=== PATIENT | male | born 1970 | race Caucasian/White ===

== ENCOUNTER 2017-12-28 09:20 | Emergency (ER) | payer BC ==
--- OUTSIDE RECORDS SUMMARY | 2017-12-28 09:22 | XMS REPORT | Clinical Summary ---
:1970 Author Organization [facility] Address [address] [place] [address] Care Team Providers Name Role Phone Asked, No Pcp Primary Care Provider Unavailable Allergies No Known Allergies Current Medications Prescription Sig. Disp. Refills Start Date End Date Status traZODone (DESYREL) TAKE ONE (1) 30 tablet 2 10/03/2017 Active 100 MG tablet TABLET(S) BY 9 MOUTH AT BEDTIME. ALPRAZolam (XANAX) TAKE ONE (1) 5 tablet 0 11/05/2017 Active 1 MG tablet TABLET(S) BY 9 MOUTH NEEDED FOR ANXIETY. ibuprofen Take 200 mg by Active (ADVIL,MOTRIN) 200 mouth every 6 MG tablet (six) hours as needed for mild pain. gabapentin Take 300 mg by Active (NEURONTIN) 300 mg mouth 3 capsule (three) times a day. PROAIR HFA 90 INHALE TWO (2) 0 12/02/2017 Active mcg/actuation PUFFS FOUR inhaler TIMES A DAY NEEDED. CIALIS 10 mg tablet TAKE ONE (1) 2 10/27/2017 Active TABLET(S) BY MOUTH ONCE A DAY NEEDED. ANORO ELLIPTA INHALE ONE (1) 1 10/22/2017 Active 62.5-25 PUFF(S) TWICE mcg/actuation A DAY. blister with device acetaminophen-codei Take 1-2 20 tablet 0 09/22/2017 ne (TYLENOL WITH tablets by 8 CODEINE #3) 300-30 mouth every 4 mg per tablet (four) hours as needed for moderate pain for up to 5 days. clonAZEPAM TAKE ONE (1) 0 09/09/2017 Discontinued (KlonoPIN) 0.5 MG TABLET(S) BY 8 tablet MOUTH AT BEDTIME NEEDED. traZODone (DESYREL) TAKE ONE (1) 2 07/30/2017 Discontinued 100 MG tablet TABLET(S) BY 8 MOUTH AT BEDTIME. clonAZEPAM TAKE ONE (1) 30 tablet 2 10/03/2017 Discontinued (KlonoPIN) 0.5 MG TABLET(S) BY 8 tablet MOUTH AT BEDTIME NEEDED. ALPRAZolam (XANAX) Take 1 tab PO 15 tablet 0 10/06/2017 Discontinued 1 MG tablet prn anxiety 8 traMADol (ULTRAM) Take 1 tablet 30 tablet 1 10/06/2017 Discontinued 50 mg tablet (50 mg total) 8 by mouth every 6 (six) hours as needed for moderate pain for up to 30 days. traMADol (ULTRAM) Take 1 tablet 30 tablet 1 11/04/2017 50 mg tablet (50 mg total) 8 by mouth every 6 (six) hours as needed for moderate pain for up to 30 days. acetaminophen Take 2 tablets 40 tablet 0 11/10/2017 (TYLENOL) 325 MG (650 mg total) 8 tablet by mouth every 6 (six) hours for 5 days. gabapentin Take 1 capsule 21 capsule 0 11/10/2017 (NEURONTIN) 300 mg (300 mg total) 8 capsule by mouth 3 (three) times a day for 7 days. sennosides-docusate Take 1 tablet 60 tablet 0 11/10/2017 sodium (SENOKOT-S) by mouth 2 8 8.6-50 mg per (two) times a tablet day for 30 days. ibuprofen Take 1 tablet 12 tablet 0 11/10/2017 (ADVIL,MOTRIN) 600 (600 mg total) 8 MG tablet by mouth every 6 (six) hours for 3 days. acetaminophen Take 500 mg by Discontinued (TYLENOL) 500 MG mouth every 6 8 tablet (six) hours as needed for mild pain. acetaminophen-codei Take 1-2 30 tablet 0 12/17/2017 ne (TYLENOL WITH tablets by 8 CODEINE #3) 300-30 mouth every 4 mg per tablet (four) hours as needed for moderate pain for up to 5 days. cephalexin (KEFLEX) Take 1 capsule 20 capsule 0 12/17/2017 500 MG capsule (500 mg total) 8 by mouth every 6 (six) hours for 5 days. Active Problems Problem Noted Date Malignant neoplasm of upper lobe of right lung 12/04/2017 Lung nodule 11/07/2017 Encounters Date Type Specialty Care Team Description 12/24/2017 Telephone Cardiothoracic Shawn, Surgery Aarti Cooper, DALE 12/17/2017 Hospital Encounter General Surgery Tonya Lin Neoplasm of MD Reji uncertain behavior of skin 12/17/2017 Procedure Pass General Surgery 12/17/2017 Surgery General Surgery Tonya Lin EXCISION SQUAMOS MD Reji CELL CARCINOMA LEFT LOWER LIP, WITH FROZEN SECTION, COMPLEX CLOSURE 12/16/2017 Anesthesia Event General Surgery Arsalan He MD 12/11/2017 Office Visit Cardiothoracic Luc Pizano Surgery follow-up Surgery MD Norma examination (Primary Dx) 12/11/2017 Oncology Cardiothoracic Pham, Survivorship Surgery Meli, TOYA 12/09/2017 Telephone Oncology Demario Kyle MD 12/03/2017 Telephone Cardiothoracic Alicia, Surgery Carissa, HECTOR 11/25/2017 Telephone Cardiothoracic Alicia, Surgery Carissa, HECTOR 11/18/2017 Refill Oncology Demario Kyle MD 11/13/2017 Telephone Cardiothoracic Shawn, Surgery Aarti Cooper NP 11/11/2017 Telephone Cardiothoracic Shawn Surgery Aarti Cooper, DALE 11/07/2017 Hospital Encounter Cardiology Luc Pizano Lung nodule - MD Norma 11/10/2017 11/07/2017 Anesthesia Event Cardiothoracic Claribel, Surgery MAVERICK Maher 11/07/2017 Procedure Pass Cardiothoracic Surgery 11/07/2017 Surgery Cardiothoracic Luc Pizano ROBOTIC ASSISTED Surgery MD oNrma THORACOSCOPIC RIGHT UPPER LOBE WEDGE RESECTION, POSSIBLE LOBECTOMY, MEDIASTINAL LYMPH NODE DISSECTION 11/06/2017 Telephone Cardiothoracic Shawn, Surgery Aarti Cooper, OIL TRUCK DRIVER 11/04/2017 Telephone Oncology Demario Kyle MD 10/27/2017 Lab Lab Luc Pizano MD 10/27/2017 Orders Only Cardiothoracic Luc Pizano Surgery MD Norma 10/27/2017 Transcribe Orders Procedural Cardiology Harinder Garethdevorah Lung nodule ; MD Suhas Pre-op testing 10/22/2017 Telephone Cardiothoracic Alicia, Surgery Carissa, [place] 10/20/2017 Refill Oncology Demario Kyle MD 10/16/2017 Office Visit Cardiothoracic Luc Pizano Lung nodule (Primary Dx ); Surgery MD Norma Pre-op testing 10/16/2017 Hospital Encounter Pulmonology Luc Pizano MD 10/16/2017 Orders Only Cardiothoracic Provider, Surgery MD Tejal 10/16/2017 Oncology Oncology Deborah Nath, TOYA 10/08/2017 Telephone Cardiothoracic Alicia, Surgery Carissa, [place] 10/08/2017 Telephone Cardiothoracic Ambrosio, Surgery Yesenia, [place] 10/08/2017 Telephone Cardiothoracic Ambrosio Surgery [place], [place] 10/08/2017 Orders Only Oncology Misa Melendez RN 10/08/2017 Telephone Oncology Demario Kyle MD 10/08/2017 Orders Only Cardiothoracic Alicia, Malignant neoplasm Surgery Carissa, [place] of lung, unspecified laterality, unspecified part of lung (Primary Dx) 10/06/2017 Hospital Encounter Radiology Saroj, Malignant neoplasm Demario Osuna of lung, unspecified laterality, unspecified part of lung 10/06/2017 Orders Only Oncology Misa Melendez RN 10/06/2017 Telephone Oncology Demario Kyle MD 10/03/2017 Orders Only Oncology Misa Melendez RN 10/03/2017 Orders Only Oncology Racquel Acevedo MA 10/02/2017 Telephone Oncology Demario Kyle MD 09/30/2017 Consult Oncology Saroj Malignant neoplasm Demario Osuna of lung, unspecified laterality, unspecified part of lung (Primary Dx) 09/30/2017 Telephone Oncology Demario Kyle MD 09/23/2017 Telephone Oncology Demario Kyle MD 09/22/2017 Emergency Emergency Medicine Dupont, Lung mass (Primary Dx); Kalie Rosario DO Chest pain, unspecified type Marko Galo MD after 12/27/2016 Family History Medical History Relation Name Comments Arrhythmia Brother Stroke Maternal Grandfather Heart disease Mother Relation Name Status Comments Brother Father Maternal Grandfather Mother Alive Social History Tobacco Use Types Packs/Day Years Used Date Current Every Day Smoker Cigarettes 0.5 35 1982 - 10/17/2017 Smokeless Tobacco: Never Used Tobacco Cessation: Counseling Given: Yes Alcohol Use Drinks/Week oz/Week Comments No Sex Assigned at Date Recorded Not on file Last Filed Vital Signs Vital Sign Reading Time Taken Blood Pressure 116/62 12/17/2017 1:02 PM CDT Pulse 94 12/17/2017 1:02 PM CDT Temperature 37.1 C (98.8 F) 12/17/2017 12:43 PM CDT Respiratory Rate 18 12/17/2017 1:02 PM CDT Oxygen Saturation 97% 12/17/2017 1:02 PM CDT Inhaled Oxygen Concentration - - Weight 57.9 kg (127 lb 9.6 oz) 12/17/2017 6:18 AM CDT Height 175.3 cm (5' 9") 12/17/2017 6:18 AM CDT Body Mass Index 18.84 12/17/2017 6:18 AM CDT Plan of Treatment Health Maintenance Due Date Last Done Comments INFLUENZA VACCINE 01/07/2018 Procedures Procedure Name Priority Date/Time Associated Comments Diagnosis SURGICAL PATHOLOGY Routine 12/17/2017 10:33 Results for this REQUEST AM CDT procedure are in the results section. KS AN ELECTIVE Routine 12/17/2017 10:29 ENDOTRACHEAL AIRWAY AM CDT Procedure Note - Tonya Mendez CRNA - 12/17/2017 10:29 AM CDT Airway Date/Time: 12/17/2017 10:03 AM Performed by: TONYA MENDEZ Authorized by: ARSALAN HE Location: OR Urgency: Elective Difficult Airway: No Resident/WAITER/WAITRESS FORMAL/AA: TONYA MENDEZ Performed by: resident/WAITER/WAITRESS FORMAL/AA Preoxygenated with 100% O2: Yes C-spine Precautions Maintained Throughout: Yes Mask Ventilation: Easy mask Final Airway Type: Endotracheal airway Final Endotracheal Airway: ETT Technique Used: Direct laryngoscopy Devices/Methods Used in Placement: Intubating stylet Insertion Site: Oral Blade Type: Keren Laryngoscope Blade/Videolaryngoscope Blade Size: 3 ETT Size (mm): 7.0 Measured from: Lips ETT to Lips (cm): 22 Placement Verified by: CO2 detection, direct visualization and equal breath sounds Laryngoscopic view: Grade IIb - view of arytenoids or posterior of glottis only Rapid Sequence Induction (RSI): No Modified RSI: No Number of Attempts at Approach: 1 HC COMPLETE BLD COUNT W/AUTO STAT 12/17/2017 6:33 AM CDT Results for this DIFF procedure are in the results section. XR CHEST 1 VW PORTABLE Routine 11/10/2017 6:50 AM CDT XR CHEST 1 VW PORTABLE Routine 11/09/2017 6:36 AM CDT XR CHEST 1 VW PORTABLE STAT 11/08/2017 8:13 PM CDT XR CHEST 1 VW PORTABLE Routine 11/08/2017 2:29 PM CDT XR CHEST 1 VW PORTABLE STAT 11/08/2017 2:42 AM CDT ESTIMATED GFR STAT 11/08/2017 12:39 AM CDT PHOSPHORUS LEVEL STAT 11/08/2017 12:39 AM CDT MAGNESIUM LEVEL STAT 11/08/2017 12:39 AM CDT HC COMPLETE BLD COUNT W/AUTO STAT 11/08/2017 12:39 AM CDT Results for this DIFF procedure are in the results section. BASIC METABOLIC PANEL STAT 11/08/2017 12:39 AM CDT TROPONIN STAT 11/08/2017 12:39 AM CDT ARTERIAL BLOOD GAS STAT 11/08/2017 12:38 AM CDT POC GLUCOSE Routine 11/08/2017 12:33 AM CDT ECG 12-LEAD STAT 11/08/2017 12:30 AM CDT XR CHEST 1 VW PORTABLE STAT 11/07/2017 3:45 PM CDT GLUCOSE LEVEL, SYRINGE STAT 11/07/2017 12:16 PM CDT HEMOGLOBIN, SYRINGE STAT 11/07/2017 12:16 PM CDT IONIZED CALCIUM, ARTERIAL STAT 11/07/2017 12:16 PM CDT SODIUM LEVEL, SYRINGE STAT 11/07/2017 12:16 PM CDT POTASSIUM, SYRINGE STAT 11/07/2017 12:16 PM CDT ARTERIAL BLOOD GAS STAT 11/07/2017 12:16 PM CDT SURGICAL PATHOLOGY REQUEST Routine 11/07/2017 10:53 AM CDT SURGICAL PATHOLOGY REQUEST Routine 11/07/2017 10:53 AM CDT SURGICAL PATHOLOGY REQUEST Routine 11/07/2017 10:53 AM CDT SURGICAL PATHOLOGY REQUEST Routine 11/07/2017 10:53 AM CDT MISCELLANEOUS REFERRAL TEST Routine 11/07/2017 10:53 AM CDT ARTERIAL BLOOD GAS, STAT 11/07/2017 10:27 AM CDT Results for this CORRECTED procedure are in the results section. HEMOGLOBIN, SYRINGE STAT 11/07/2017 10:27 AM CDT SODIUM LEVEL, SYRINGE STAT 11/07/2017 10:27 AM CDT POTASSIUM, SYRINGE STAT 11/07/2017 10:27 AM CDT IONIZED CALCIUM, ARTERIAL STAT 11/07/2017 10:27 AM CDT GLUCOSE LEVEL, SYRINGE STAT 11/07/2017 10:27 AM CDT ARTERIAL LINE Routine 11/07/2017 8:27 AM CDT Procedure Note - Marjorie Sanford CRNA - 11/07/2017 8:27 AM CDT Arterial line Performed by: MARJORIE SANFORD Authorized by: LILLI GRAJEDA JR. Patient Location: OR Start Time: 11/07/2017 7:55 AM End Time: 11/07/2017 7:58 AM Staff: Anesthesiologist: LILLI GRAJEDA JR. Resident/WAITER/WAITRESS FORMAL/AA: MARJORIE SANFORD Performed by: Resident/WAITER/WAITRESS FORMAL/AA Pre-procedure: patient identified, IV checked, site and side verified, risks and benefits discussed, procedure verified, surgical consent complete, patient position confirmed, monitors and equipment checked and pre-op evaluation complete MSBT: antiseptic used, all elements of maximal sterile barrier technique followed, hand hygiene performed, cap/gown used by other personnel and solutions labeled TIme Out Performed: 11/07/2017 7:55 AM Indications: Indications: multiple ABGs, respiratory failure and hemodynamic monitoring Anesthesia: Anesthesia: General Procedure Details: Arterial Line placement: Placed post induction Line placement site: Radial Line placement side: Right Arterial line gauge: 20 G Number of attempts: 1 Ultrasound guidance used: No Post-procedure: Post-procedure: Sterile dressing applied Post procedure circulation, sensation, movement: Normal Patient tolerance: Patient tolerated the procedure well with no immediate complications KS AN ELECTIVE ENDOTRACHEAL AIRWAY Routine 11/07/2017 8:25 AM CDT Procedure Note - Marjorie Sanford CRNA - 11/07/2017 8:25 AM CDT Airway Date/Time: 11/07/2017 7:47 AM Performed by: MARJORIE SANFORD Authorized by: LILLI GRAJEDA JR. Location: OR Urgency: Elective Difficult Airway: No Preoxygenated with 100% O2: Yes C-spine Precautions Maintained Throughout: Yes Mask Ventilation: Easy mask Final Airway Type: Endotracheal airway Final Endotracheal Airway: ETT - double lumen left Cuffed: Yes Technique Used: Direct laryngoscopy Devices/Methods Used in Placement: Intubating stylet Insertion Site: Oral Blade Type: Quinones Laryngoscope Blade/Videolaryngoscope Blade Size: 2 ETT Double Lumen (fr): 39 Cuff at minimum occlusion pressure: Yes Measured from: Lips ETT to Lips (cm): 29 Placement Verified by: CO2 detection, direct visualization and equal breath sounds Laryngoscopic view: Grade I - full view of glottis Rapid Sequence Induction (RSI): No Modified RSI: No Number of Attempts at Approach: 1 Atraumatic intubation, teeth and lips intact, ETT secured via tape and connected to the OR vent. Patient tolerated intubation well. Area of left lower lip lesion avoided. ARTERIAL BLOOD GAS, STAT 11/07/2017 8:16 Results for this CORRECTED AM CDT procedure are in the results section. SODIUM LEVEL, SYRINGE STAT 11/07/2017 8:16 Results for this AM CDT procedure are in the results section. POTASSIUM, SYRINGE STAT 11/07/2017 8:16 Results for this AM CDT procedure are in the results section. HEMOGLOBIN, SYRINGE STAT 11/07/2017 8:16 Results for this AM CDT procedure are in the results section. GLUCOSE LEVEL, SYRINGE STAT 11/07/2017 8:16 Results for this AM CDT procedure are in the results section. IONIZED CALCIUM, STAT 11/07/2017 8:16 Results for this ARTERIAL AM CDT procedure are in the results section. ECG 12-LEAD Routine 10/27/2017 1:41 Lung nodule Results for this PM CDT Pre-op testing procedure are in the results section. PREPARE RBC Routine 10/27/2017 1:40 Results for this PM CDT procedure are in the results section. TYPE AND SCREEN Routine 10/27/2017 1:40 Results for this PM CDT procedure are in the results section. CBC WITH PLATELET AND Routine 10/27/2017 1:30 Results for this DIFFERENTIAL PM CDT procedure are in the results section. PROTHROMBIN TIME WITH Routine 10/27/2017 1:30 Results for this INR PM CDT procedure are in the results section. PARTIAL THROMBOPLASTIN Routine 10/27/2017 1:30 Results for this TIME (PTT) PM CDT procedure are in the results section. COMPREHENSIVE METABOLIC Routine 10/27/2017 1:30 Results for this PANEL PM CDT procedure are in the results section. SPIROMETRY, DIFFUSION Routine 10/16/2017 10:03 Malignant neoplasm AM CDT of lung, unspecified laterality, unspecified part of lung PULMONARY FUNCTION TEST Routine 10/16/2017 12:[address] SKULL BASE TO Routine 10/06/2017 10:09 Malignant neoplasm Results for this MID THIGH AM CDT of lung, procedure are in unspecified the results laterality, section. unspecified part of lung POC GLUCOSE Routine 10/06/2017 8:45 Results for this AM CDT procedure are in the results section. ED REFERRAL TO [facility] Routine 09/22/2017 8:44 PENTECOSTALISM PHYSICIAN PM CDT ORGANIZATION CT CHEST W CONTRAST STAT 09/22/2017 4:10 Results for this PM CDT procedure are in the results section. XR CHEST 2 VW STAT 09/22/2017 2:54 Results for this PM CDT procedure are in the results section. ECG ED PRELIMINARY Routine 09/22/2017 2:50 Results for this INTERPRETATION PM CDT procedure are in the results section. ESTIMATED GFR STAT 09/22/2017 2:19 Results for this PM CDT procedure are in the results section. B NATRIURETIC PEPTIDE STAT 09/22/2017 2:19 Results for this PM CDT procedure are in the results section. TROPONIN STAT 09/22/2017 2:19 Results for this PM CDT procedure are in the results section. COMPREHENSIVE METABOLIC STAT 09/22/2017 2:19 Results for this PANEL PM CDT procedure are in the results section. HC COMPLETE BLD COUNT STAT 09/22/2017 2:19 Results for this W/AUTO DIFF PM CDT procedure are in the results section. ECG 12-LEAD STAT 09/22/2017 1:48 Results for this PM CDT procedure are in the results section. after 12/27/2016 Results Surgical pathology request (12/17/2017 10:33 AM)Only the most recent of5 resultswithin the time period is included. [facility] DEPARTMENT OF PATHOLOGY AND GENOMIC MEDICINE Surgical pathology report See link below for PDF [facility] DEPARTMENT OF Lab Report PATHOLOGY AND GENOMIC MEDICINE Result status This is Final Report to [facility] DEPARTMENT OF [id number] PATHOLOGY AND GENOMIC MEDICINE Performing Organization Address City/State/Zipcode Phone Number [facility] DEPARTMENT OF PATHOLOGY AND [address] [place] [address]. [place] [address] GENOMIC MEDICINE CBC with platelet and differential (12/17/2017 6:33 AM)Only the most recent of4 resultswithin the time period is included. WBC 7.8 4.2 - 11.0 k/uL [facility] DEPARTMENT OF PATHOLOGY AND GENOMIC MEDICINE RBC 4.77 4.04 - 5.86 m/uL [facility] DEPARTMENT OF PATHOLOGY AND GENOMIC MEDICINE HGB 13.9 13.0 - 17.3 g/dL [facility] DEPARTMENT OF PATHOLOGY AND GENOMIC MEDICINE HCT 44.2 34.0 - 45.0 % [facility] DEPARTMENT OF PATHOLOGY AND GENOMIC MEDICINE MCV 92.7 80.0 - 98.0 fL [facility] DEPARTMENT OF PATHOLOGY AND GENOMIC MEDICINE MCH 29.1 27.0 - 34.0 pg [facility] DEPARTMENT OF PATHOLOGY AND GENOMIC MEDICINE MCHC 31.4 (L) 31.5 - 36.5 g/dL [facility] DEPARTMENT OF PATHOLOGY AND GENOMIC MEDICINE RDW - SD 51.2 (H) 37.0 - 51.0 fL [facility] DEPARTMENT OF PATHOLOGY AND GENOMIC MEDICINE MPV 9.5 7.4 - 10.4 fL [facility] DEPARTMENT OF PATHOLOGY AND GENOMIC MEDICINE Platelet count 294 150 - 400 k/uL [facility] DEPARTMENT OF PATHOLOGY AND GENOMIC MEDICINE Nucleated RBC 0.00 /100 WBC [facility] DEPARTMENT OF PATHOLOGY AND GENOMIC MEDICINE Neutrophils 44.1 36.0 - 66.0 % [facility] DEPARTMENT OF PATHOLOGY AND GENOMIC MEDICINE Lymphocytes 34.8 24.0 - 44.0 % [facility] DEPARTMENT OF PATHOLOGY AND GENOMIC MEDICINE Monocytes 8.9 (H) 0.0 - 6.0 % [facility] DEPARTMENT OF PATHOLOGY AND GENOMIC MEDICINE Eosinophils 10.5 (H) 0.0 - 6.0 % [facility] DEPARTMENT OF PATHOLOGY AND GENOMIC MEDICINE Basophils 1.3 (H) 0.0 - 1.2 % [facility] DEPARTMENT OF PATHOLOGY AND GENOMIC MEDICINE Immature granulocytes 0.4 0.0 - 1.0 % [facility] DEPARTMENT OF PATHOLOGY AND GENOMIC MEDICINE Specimen Blood Performing Organization Address City/State/[facility] Phone Number [facility] DEPARTMENT OF PATHOLOGY AND [address] [place] [address] [facility] MEDICINE XR Chest 1 Vw Portable (11/10/2017 6:50 AM)Only the most recent of6 resultswithin the time period is included. Narrative Performed At EXAMINATION:XR CHEST 1 VW PORTABLE [facility] CLINICAL HISTORY:Post-op surgery COMPARISON:Yesterday IMPRESSION: Soft tissue gas in the right supraclavicular and subclavian region partially visualized, grossly stable. No pneumothorax identified. Stable moderate right hemidiaphragmatic elevation. Better aeration in the left lung base, otherwise stable [facility]-[id number] Procedure Note Hm Interface, Radiology Results Incoming - 11/10/2017 7:31 AM CDT EXAMINATION: XR CHEST 1 VW PORTABLE CLINICAL HISTORY: Post-op surgery COMPARISON: Yesterday IMPRESSION: Soft tissue gas in the right supraclavicular and subclavian region partially visualized, grossly stable. No pneumothorax identified. Stable moderate right hemidiaphragmatic elevation. Better aeration in the left lung base, otherwise stable [facility]-[id number] Performing Organization Address City/[facility]/Zipcode Phone Number [facility] [address] [place] [phone] Estimated GFR (11/08/2017 12:39 AM)Only the most recent of2 resultswithin the time period is included. GFR Non Af Amer >90 mL/min/1.73 m2 [facility] DEPARTMENT OF PATHOLOGY AND GENOMIC MEDICINE GFR Af Amer >90 mL/min/1.73 m2 [facility] DEPARTMENT OF Comment: PATHOLOGY AND GENOMIC Chronic kidney disease: <60 mL/min/1.73m2 MEDICINE Kidney failure: <15 mL/min/1.73m2 The estimated GFR is calculated from the IDMS-traceable Modification of Diet in Renal Disease Equation. The accuracy of the calculation is poor when the creatinine is normal. Calculated values >90 mL/min/1.73m2 are not reported. This equation has not been validated in children (<18 years), women, the elderly (>70 years), or ethnic groups other than Caucasians and Americans. Specimen Plasma specimen Performing Organization Address [facility] Hospitalcowv Phone Number [facility] DEPARTMENT OF PATHOLOGY AND [address] [place], [place] [phone] [facility] Troponin (11/08/2017 12:39 AM)Only the most recent of2 resultswithin the time period is included. Troponin <0.30 0.00 - 0.30 ng/mL [facility] DEPARTMENT OF PATHOLOGY Comment: AND GENOMIC MEDICINE 0.30 - 1.49 ng/mlMay indicate increased risk of acute coronary syndrome. >=1.5 ng/mlConsistent with acute myocardial infarction. The diagnostic value of a single normal or non-diagnostic result is questionable.Serial samples at 2-6 hour intervals are required to rule out acute myocardial injury. Specimen Plasma specimen Performing Organization Address City/State/Zipcode Phone Number [facility] DEPARTMENT OF PATHOLOGY AND [address] [place] [phone] [facility] Phosphorus level (11/08/2017 12:39 AM) Phosphorus 3.3 2.4 - 4.5 mg/dL [facility] DEPARTMENT OF PATHOLOGY AND GENOMIC MEDICINE Specimen Plasma specimen Performing Organization Address [facility] Hospitalcode Phone Number [facility] DEPARTMENT OF PATHOLOGY AND [address] [place] [phone] [facility] Magnesium level (11/08/2017 12:39 AM) Magnesium 1.8 1.6 - 2.6 mg/dL [facility] DEPARTMENT OF PATHOLOGY AND GENOMIC MEDICINE Specimen Plasma specimen Performing Organization Address City/[facility]/Zipcode Phone Number [facility] DEPARTMENT OF PATHOLOGY AND [address] [place] [address] Basic metabolic panel (11/08/2017 12:39 AM) Sodium 135 135 - 148 mEq/L [facility] DEPARTMENT OF PATHOLOGY AND GENOMIC MEDICINE Potassium 4.8 3.5 - 5.0 mEq/L [facility] DEPARTMENT OF PATHOLOGY AND GENOMIC MEDICINE Chloride 101 98 - 112 mEq/L [facility] DEPARTMENT OF PATHOLOGY AND GENOMIC MEDICINE CO2 24 24 - 31 mEq/L [facility] DEPARTMENT OF PATHOLOGY AND GENOMIC MEDICINE Anion gap 10@ANIO 7 - 15 mEq/L [facility] DEPARTMENT OF PATHOLOGY AND GENOMIC MEDICINE BUN 8 6 - 20 mg/dL [facility] DEPARTMENT OF PATHOLOGY AND GENOMIC MEDICINE Creatinine 0.9 0.7 - 1.2 mg/dL [facility] DEPARTMENT OF PATHOLOGY AND GENOMIC MEDICINE Glucose 164 (H) 65 - 99 mg/dL [facility] DEPARTMENT OF PATHOLOGY AND GENOMIC MEDICINE Calcium 8.3 8.3 - 10.2 mg/dL [facility] [facility] DEPART[facility]OLOGY AND GENOMIC MEDICINE Specimen Plasma specimen Performing Organization Address City/[facility] Phone Number [facility] DEPARTMENT OF PATHOLOGY AND [address] [place] [address] Arterial blood gas (11/08/2017 12:38 AM)Only the most recent of2 resultswithin the time period is included. pH, arterial 7.40 7.35 - 7.45 [facility] DEPARTMENT OF PATHOLOGY AND GENOMIC MEDICINE pCO2, arterial 43 35 - 45 mmHg [facility] DEPARTMENT OF PATHOLOGY AND GENOMIC MEDICINE pO2, arterial 111 (H) 80 - 90 mmHg [facility] DEPARTMENT OF PATHOLOGY AND GENOMIC MEDICINE Bicarbonate, arterial 25.8 21.0 - 28.0 mmol/L [facility] DEPARTMENT OF PATHOLOGY AND GENOMIC MEDICINE Base excess, arterial 1 -2 - 2 mEq/L [facility] DEPARTMENT OF PATHOLOGY AND GENOMIC MEDICINE O2 saturation, arterial 98 95 - 100 % [facility] DEPARTMENT OF PATHOLOGY AND GENOMIC MEDICINE Specimen Blood Performing Organization Address City/[facility]/Zipcode Phone Number [facility] DEPARTMENT OF PATHOLOGY AND [address] [place] [address] POC glucose (11/08/2017 12:33 AM)Only the most recent of2 resultswithin the time period is included. POC glucose 142 (H) 65 - 99 mg/dL [facility] DEPARTMENT OF PATHOLOGY AND Comment: GENOMIC MEDICINE [facility] Notified RN Meter ID: [id number] Song And Dance Performer: Armani Soto Performing Organization Address [facility] Phone Number [facility] DEPARTMENT OF PATHOLOGY AND [address] [place] [address] MEDICINE ECG 12 lead (11/08/2017 12:30 AM)Only the most recent of3 resultswithin the time period is included. Ventricular rate 79 [facility] Atrial rate 79 [facility] KS interval 146 [facility] QRSD interval 90 [facility] QT interval 340 [facility] QTC interval 389 [facility] P axis 1 65 [facility] QRS axis 1 90 [facility] T wave axis 50 [facility] EKG impression Normal sinus rhythm-Possible Left atrial [facility] MUSE enlargement-Rightward axis-Borderline ECG-In automated comparison with ECG of 27-OCT-2017 13:41,-No significant change was found- Performing Organization Address [facility] Phone Number [facility] MUSE [address] [place] [address] Sodium level, syringe (11/07/2017 12:16 PM)Only the most recent of3 resultswithin the time period is included. Sodium, syringe 134 (L) 135 - 148 mEq/L [facility] DEPARTMENT OF PATHOLOGY AND GENOMIC MEDICINE Specimen Blood Performing Organization Address [facility] Phone Number [facility] DEPARTMENT OF PATHOLOGY AND [address] [place] [address] Potassium, syringe (11/07/2017 12:16 PM)Only the most recent of3 resultswithin the time period is included. Potassium, syringe 4.8 3.5 - 5.0 mEq/L [facility] DEPARTMENT OF PATHOLOGY AND GENOMIC MEDICINE Specimen Blood Performing Organization Address [facility] Phone Number [facility] DEPARTMENT OF PATHOLOGY AND [address] [place] [address] Ionized calcium, arterial (11/07/2017 12:16 PM)Only the most recent of3 resultswithin the time period is included. Ionized calcium, arterial 1.09 (L) 1.11 - 1.32 mmol/L [facility] DEPARTMENT OF PATHOLOGY AND GENOMIC MEDICINE Specimen Blood Performing Organization Address City/[facility] Phone Number [facility] DEPARTMENT OF PATHOLOGY AND [address] [place] [address] Hemoglobin, syringe (11/07/2017 12:16 PM)Only the most recent of3 resultswithin the time period is included. Hemoglobin, syringe 13.1 (L) 14.0 - 18.0 g/dL [facility] DEPARTMENT OF PATHOLOGY AND GENOMIC MEDICINE Specimen Blood Performing Organization Address City/[facility] Phone Number [facility] DEPARTMENT OF PATHOLOGY AND [address] [place] [address] Glucose level, syringe (11/07/2017 12:16 PM)Only the most recent of3 resultswithin the time period is included. Glucose, syringe 122 (H) 65 - 99 mg/dL [facility] DEPARTMENT OF PATHOLOGY AND GENOMIC MEDICINE Specimen Blood Performing Organization Address [facility] Hospitalcowv Phone Number [facility] DEPARTMENT OF PATHOLOGY AND [address] [place] [address] Miscellaneous referral test (11/07/2017 10:53 AM) [facility] test name NEOGENOMIC [facility] test result see note [facility] Comment: MET FISH Sample type: Paraffin, lung Case# [id number] RESULTS: NEGATIVE Interpretation: MET(7q31) signals per nucleus: 2.6 CEN7 signals per nucleus: 2.5 MET-CEN7 signal ratio: 1.0 An H&E stained slide was reviewed by a pathologist to identify traget areas containing invasive tumor. FISH analysis was performed within the marked target areas using a dual-probe FISH assay to detect MET overexpression. Results show no evidence of MET amplification with a MET/CEN7 ratio of <2.0. This is a NEGATIVE result. This MET FISH assay was scored manually by a certified coordinator of genetic services. Two or more independent areas containing invasive tumor were analyzed and the technical results underwent further review for quality worker purposes. Reference range: Positive: MET(7q31) to CEN7 signal ration is >/=2.0 or when 10% of tumor cells contain clusters of >15 copies per cell of MET (7q31) signals. Negative: MET(7q31) to CEN7 signal ratio is <2.0 Equivocal: MET copy number >/=5.0 and MET/CEN7 ratio <2.0 Probe set details: MET: nuc christiano(CEN7x2.5,METx2.6)[50] Nuclei scored: 50 Test(s) performed by: [employer] 5 ADEOLA Rose Narrative Performed At [employer] MET [facility] [id number] Performing Organization Address City/[facility]/Zipcode Phone Number [facility] [address] [place] [address] Arterial blood gas, corrected (11/07/2017 10:27 AM)Only the most recent of2 resultswithin the time period is included. pH, arterial 7.24 (L) 7.35 - 7.45 [facility] DEPARTMENT OF PATHOLOGY AND GENOMIC MEDICINE pCO2, arterial 64 (HH) 35 - 45 mmHg [facility] DEPARTMENT OF PATHOLOGY AND GENOMIC MEDICINE pO2, arterial 187 (H) 80 - 90 mmHg [facility] DEPARTMENT OF PATHOLOGY AND GENOMIC MEDICINE Temperature, Celsius 36.4 Degrees C [facility] DEPARTMENT OF PATHOLOGY AND GENOMIC MEDICINE O2 saturation, arterial 99 95 - 100 % [facility] DEPARTMENT OF PATHOLOGY AND GENOMIC MEDICINE pH, arterial corrected 7.25 [facility] DEPARTMENT OF PATHOLOGY AND GENOMIC MEDICINE pCO2, arterial corrected 62 mmHg [facility] DEPARTMENT OF PATHOLOGY AND GENOMIC MEDICINE pO2, arterial corrected 184 mmHg [facility] DEPARTMENT OF PATHOLOGY AND GENOMIC MEDICINE Base excess, arterial -2 -2 - 2 mEq/L [facility] DEPARTMENT OF PATHOLOGY AND GENOMIC MEDICINE Specimen Blood Performing Organization Address City/State/Zipcode Phone Number [facility] DEPARTMENT OF PATHOLOGY [address] [address] [employer] [employer] [facility] Prepare RBC (10/27/2017 1:40 PM) Product name Apheresis Red Cell AS3 #1 LR [facility] DEPARTMENT OF PATHOLOGY AND GENOMIC MEDICINE Unit number [id number] [facility] DEPARTMENT OF PATHOLOGY AND GENOMIC MEDICINE Product code [id number] [facility] DEPARTMENT OF PATHOLOGY AND GENOMIC MEDICINE Dispense status Returned to [facility] DEPARTMENT OF transfused PATHOLOGY AND GENOMIC MEDICINE Blood expiration date [facility] DEPARTMENT OF PATHOLOGY AND GENOMIC MEDICINE Blood type code 0600 [facility] DEPARTMENT OF PATHOLOGY AND GENOMIC MEDICINE Blood type A NEGATIVE [facility] DEPARTMENT OF PATHOLOGY AND GENOMIC MEDICINE Product name Apheresis Red Cell AS3 #2 LR [facility] DEPARTMENT OF PATHOLOGY AND GENOMIC MEDICINE Unit number [id number] [facility] DEPARTMENT OF PATHOLOGY AND GENOMIC MEDICINE Product code [id number] [facility] DEPARTMENT OF PATHOLOGY AND GENOMIC MEDICINE Dispense status Returned to BB not [facility] DEPARTMENT OF transfused PATHOLOGY AND GENOMIC MEDICINE Blood expiration date [id number] [facility] DEPARTMENT OF PATHOLOGY AND GENOMIC MEDICINE Blood type code 0600 [facility] DEPARTMENT OF PATHOLOGY AND GENOMIC MEDICINE Blood type A NEGATIVE [facility] DEPARTMENT OF PATHOLOGY AND GENOMIC MEDICINE Performing Organization Address City/[facility] Phone Number [facility] DEPARTMENT OF PATHOLOGY AND [address] [place] [id number] GENOMIC MEDICINE Type and screen (10/27/2017 1:40 PM) ABO grouping A [facility] DEPARTMENT OF PATHOLOGY AND GENOMIC MEDICINE Rh type NEG [facility] DEPARTMENT OF PATHOLOGY AND GENOMIC MEDICINE Antibody screen (gel) NEG [facility] DEPARTMENT OF PATHOLOGY AND GENOMIC MEDICINE Performing Organization Address [facility] Phone Number [facility] DEPARTMENT OF PATHOLOGY AND [address] [place] [address] [employer] MEDICINE Partial thromboplastin time, activated (10/27/2017 1:30 PM) PTT 27 22 - 34 sec [facility] [place] Comment: This test has not been validated for monitoring unfractionated heparin therapy. For testing that is validated for this type of therapy, please refer to the Heparin Anti-Xa assay (test code 78008). For additional information, please refer to http://[employer]/faq/QLQ052 (This link is being provided for informational/educational purposes only.) Narrative Performed At FASTING: UNKNOWN [facility] Resulting Agency Comment Performing Organization Information: Site ID: [id number] Name: [facility] Address: [address] [place] [phone] Director: eVrónica Villatoro Performing Organization Address [facility] Phone Number [facility] [place] [address] [place] [address] Prothrombin time with INR (10/27/2017 1:30 PM) INR 1.0 [facility] [place] Comment: Reference Range 0.9-1.1 Moderate-intensity Warfarin Therapy 2.0-3.0 Higher-intensity Warfarin Therapy 3.0-4.0 Prothrombin time 10.8 9.0 - 11.5 sec [facility] [place] Comment: For more information on this test, go to: http://[employer]/faq/MOL334 Narrative Performed At FASTING: [facility]KNOWN [facility] Resulting Agency Comment Performing Organization Information: Site ID: [id number] Name: [facility] Address: [address] [place] [id number] Director: Verónica Villatoro Performing Organization Address City/[facility] Phone Number [facility] [address] [place] [address] Comprehensive metabolic panel (10/27/2017 1:30 PM)Only the most recent of2 resultswithin the time period is included. Glucose 84 65 - 99 mg/dL [facility] Comment: [place] Fasting reference interval BUN, whole blood 9 7 - 25 mg/dL [facility] Creatinine 0.85 0.60 - 1.35 mg/dL [facility] EGFR Non-Afr. [place]ian 104 > OR=60 [facility] mL/min/1.73m2 [place] EGFR 120 > OR=60 [facility] mL/min/1.73m2 [place] BUN/creatinine ratio NOT APPLICABLE 6 - 22 (calc) [facility] [place] Sodium 138 135 - 146 mmol/L [facility] [place] Potassium 4.5 3.5 - 5.3 mmol/L [facility] [place] Chloride 102 98 - 110 mmol/L [facility] [place] CO2 31 20 - 31 mmol/L [facility] [place] Calcium 9.2 8.6 - 10.3 mg/dL [facility] Protein 6.2 6.1 - 8.1 g/dL [facility] [place] Albumin, S 3.7 3.6 - 5.1 g/dL [facility] [place] Globulin, total 2.5 1.9 - 3.7 g/dL [facility] (calc) [place] Albumin/globulin ratio 1.5 1.0 - 2.5 (calc) [facility] [place] Total bilirubin 0.2 0.2 - 1.2 mg/dL [facility] [place] Alkaline phosphatase 77 40 - 115 U/L [facility] [place] AST 15 10 - 40 U/L [facility] [place] ALT 15 9 - 46 U/L [facility] [place] Narrative Performed At FASTING: [facility]KNOWN [facility] Resulting Agency Comment Performing Organization Information: Site ID: [id number] Name: [facility] Address: [address] [place] [id number] Director: Verónica Villatoro Performing Organization Address City/State/Zipcode Phone Number [facility] [address] [place] [address] Pulmonary function tests, complete (10/16/2017) Narrative Performed At PET/CT Skull Base To Mid Thigh (10/06/2017 10:09 AM) Narrative Performed At PROCEDURE:PET CT SKULL BASE TO MID THIGH RADIANT INDICATION:Initial staging lung cancer. TECHNIQUE:Blood glucose measured at the time of injection was 85 mg/dL. The patient was then injected with 10.1 mCi of 18F-FDG, IV.Approximately one hour later, PET images were acquired from the skull base to the mid thighs. Corresponding, low dose, non-contrast CT scanning was performed as part of the attenuation correction process.Automated dose exposure control was utilized. COMPARISON:CT chest dated 09/22/2017. FINDINGS: Head and neck:No suspicious brain uptake.Normal uptake is seen in the visualized sinuses, orbits, nasopharynx, and oropharynx.Uptake by the larynx is normal.No suspicious neck lymph node uptake. Chest:No abnormal mediastinal, hilar, or axillary lymph node uptake.Prominent right hilar lymph node seen on comparison CT is without abnormal uptake.The spiculated nodule in the right upper lobe seen on comparison CT demonstrates increased uptake, with an SUV of 8.5.No suspicious uptake in the left lung. Abdomen:Normal uptake is seen in the stomach, spleen, pancreas, liver, and adrenal glands.No abnormal retroperitoneal or mesenteric lymph node uptake.Physiologic bowel uptake. Pelvis:Physiologic bowel uptake.No abnormal pelvic sidewall or inguinal lymph node uptake. Review of the osseous structures demonstrates no suspicious uptake. IMPRESSION: 1.Primary right upper lobe pulmonary malignancy, with no evidence for metastatic disease. [facility]-[id number] Procedure Note [facility], Radiology Results [facility] - 10/06/2017 10:49 AM CDT PROCEDURE: PET CT SKULL BASE TO MID THIGH INDICATION: Initial staging lung cancer. TECHNIQUE: Blood glucose measured at the time of injection was 85 mg/dL. The patient was then injected with 10.1 mCi of 18F-FDG, IV. Approximately one hour later, PET images were acquired from the skull base to the mid thighs. Corresponding, low dose, non-contrast CT scanning was performed as part of the attenuation correction process. Automated dose exposure control was utilized. COMPARISON: CT chest dated 09/22/2017. FINDINGS: Head and neck: No suspicious brain uptake. Normal uptake is seen in the visualized sinuses, orbits, nasopharynx, and oropharynx. Uptake by the larynx is normal. No suspicious neck lymph node uptake. Chest: No abnormal mediastinal, hilar, or axillary lymph node uptake. Prominent right hilar lymph node seen on comparison CT is without abnormal uptake. The spiculated nodule in the right upper lobe seen on comparison CT demonstrates increased uptake, with an SUV of 8.5. No suspicious uptake in the left lung. Abdomen: Normal uptake is seen in the stomach, spleen, pancreas, liver, and adrenal glands. No abnormal retroperitoneal or mesenteric lymph node uptake. Physiologic bowel uptake. Pelvis: Physiologic bowel uptake. No abnormal pelvic sidewall or inguinal lymph node uptake. Review of the osseous structures demonstrates no suspicious uptake. IMPRESSION: 1. Primary right upper lobe pulmonary malignancy, with no evidence for metastatic disease. [facility]-[id number] Performing Organization Address City/State/Zipcode Phone Number [employer] [address] [place] [address] CT Chest W Contrast (09/22/2017 4:10 PM) Narrative Performed At EXAMINATION:CT CHEST W CONTRAST [facility] CLINICAL HISTORY:Lung mass TECHNIQUE:Multiple axial images of the chest were obtained following intravenous administration of iodinated contrast. Sagittal and coronal computerized reformatted images were also obtained. CT scans are performed using radiation dose reduction techniques. Technical factors are evaluated and adjusted to ensure appropriate moderation of exposure. Automated dose management technology is applied to adjust radiation exposure while achieving a diagnostic quality image. COMPARISON:Chest x-ray September 22, 2017 IMPRESSION: 1.There is a spiculated 1.5 cm right upper lobe pulmonary nodule abutting/tethering the minor fissure which is highly suspicious for primary tumor. There is borderline right hilar adenopathy measuring 9 mm; metastatic disease is not excluded. Indeterminate subcentimeter subcarinal node. 2.Moderate to severe emphysema. Lungs are hyperexpanded. There are several subcentimeter right lower lobe pulmonary nodules which are nonspecific. Recommend attention at follow-up. The largest is seen on image 98 series 3, measuring 3 mm. 3.There is no pleural effusion. The central airways are patent. 4.The heart is normal in size. The thoracic aorta is normal in caliber. Limited evaluation of the upper abdomen is unremarkable. 5.No suspicious osseous lesions are seen. [facility]-[id number] Procedure Note Interface, Radiology Results Incoming - 09/22/2017 5:59 PM CDT EXAMINATION: CT CHEST W CONTRAST CLINICAL HISTORY: Lung mass TECHNIQUE: Multiple axial images of the chest were obtained following intravenous administration of iodinated contrast. Sagittal and coronal computerized reformatted images were also obtained. CT scans are performed using radiation dose reduction techniques. Technical factors are evaluated and adjusted to ensure appropriate moderation of exposure. Automated dose management technology is applied to adjust radiation exposure while achieving a diagnostic quality image. COMPARISON: Chest x-ray September 22, 2017 IMPRESSION: 1. There is a spiculated 1.5 cm right upper lobe pulmonary nodule abutting/ tethering the minor fissure which is highly suspicious for primary tumor. There is borderline right hilar adenopathy measuring 9 mm; metastatic disease is not excluded. Indeterminate subcentimeter subcarinal node. 2. Moderate to severe emphysema. Lungs are hyperexpanded. There are several subcentimeter right lower lobe pulmonary nodules which are nonspecific. Recommend attention at follow-up. The largest is seen on image 98 series 3, measuring 3 mm. 3. There is no pleural effusion. The central airways are patent. 4. The heart is normal in size. The thoracic aorta is normal in caliber. Limited evaluation of the upper abdomen is unremarkable. 5. No suspicious osseous lesions are seen. [id number] Performing Organization Address City/State/Zipcode Phone Number [facility] [address] [place] [address] XR Chest 2 Vw (09/22/2017 2:54 PM) Narrative Performed At XR CHEST 2 VW [facility] CLINICAL INDICATION:Chest Pain COMPARISON:None available IMPRESSION: There is an indeterminate 1 cm well-circumscribed nodule present in the right midlung projecting between the fourth and fifth anterior right rib, not well visualized on the lateral view. Comparison with prior exams versus follow-up CT is recommended. Lungs are otherwise clear. There is no effusion or pneumothorax. Heart and mediastinal contours are within normal limits. Bones are unremarkable. Thank you for allowing us to participate in the care of your patient. [facility]-[id number] Procedure Note Interface, Radiology Results Incoming - 09/22/2017 3:01 PM CDT XR CHEST 2 VW CLINICAL INDICATION: Chest Pain COMPARISON: None available IMPRESSION: There is an indeterminate 1 cm well-circumscribed nodule present in the right midlung projecting between the fourth and fifth anterior right rib, not well visualized on the lateral view. Comparison with prior exams versus follow-up CT is recommended. Lungs are otherwise clear. There is no effusion or pneumothorax. Heart and mediastinal contours are within normal limits. Bones are unremarkable. Thank you for allowing us to participate in the care of your patient. [facility]-[id number] Performing Organization Address [facility] Phone Number [facility] [address] [place] [address] ECG ED Preliminary Interpretation - NOT AN ORDER (09/22/2017 2:50 PM) Narrative Performed At Marko Galo MD 09/24/20171:45 AM ECG ED Preliminary Interpretation - Not an Order Performed by: KALIE DUPONT Authorized by: KALIE DUPONT ECG reviewed by ED Physician in the absence of a emergency man: yes Previous ECG: Previous ECG:Compared to current Similarity:No change Interpretation: Interpretation: abnormal Rate: ECG rate:85 ECG rate assessment: normal Rhythm: Rhythm: sinus rhythm Ectopy: Ectopy: none QRS: QRS axis:Right QRS intervals:Normal ST segments: ST segments:Normal T waves: T waves: normal B natriuretic peptide (09/22/2017 2:19 PM) BNP 40 0 - 100 pg/mL [facility] DEPARTMENT OF PATHOLOGY AND GENOMIC MEDICINE Specimen Blood Performing Organization Address [facility] Phone Number [facility] DEPARTMENT OF PATHOLOGY AND [address] [place] [address] GENOMIC MEDICINE after 12/27/2016 Insurance Payer Benefit Plan / Group Subscriber ID Type Phone Address BCBS BCBS CHOICE PPO/[employer] PPO xxxxxxxxxxxx PPO [phone] [place], [place] [id number]
[2017-12-28] MEDS ORDERED: DIAZEPAM 5 MG TABLET ONE (09:51)
[2017-12-28 11:47] LABS: Absolute Monocytes 0.7 K/uL (0.1-1.3); Basophils % 1.4 % (0-1.3); Eosinophils % 4.5 % (0-4.4); Hematocrit 45.5 % (39.6-49.0); Lymphocytes % 21.6 % (15.3-44.8); MCH 29.9 pg (27.0-35.0); MCV 89.7 fL (80-100); MPV 7.6 fL (7.6-11.3); Monocytes % 7.7 % (3.3-12.3); RBC Red Blood Cell Count 5.08 M/uL (4.33-5.43)
[2017-12-28] MEDS ORDERED: FENTANYL CITR 100 MCG/2 ML ONE (11:50)
--- NOTE | 2017-12-28 11:57 | RAD REPORT ---
EXAM DESCRIPTION: RAD - Chest Pa And Lat (2 Views) - 12/28/2017 10:48 am CLINICAL HISTORY: Chest pain, shortness of breath, patient history of lung cancer COMPARISON: None. TECHNIQUE: PA and lateral views of the chest were obtained. FINDINGS: The lungs are clear of an acute infiltrate. No failure or volume overload. There is tentin g of the right hemidiaphragm and right hilum elevation. Numerous surgical clips are present at the [facility] h[facility]. Patient is presumed to be status post right-sided lobectomy. No comparison imaging availa ble. Heart size is normal and central vasculature is within normal limits. No pleural effusion or pn eumothorax seen. No acute bony finding noted. No aortic abnormality. IMPRESSION: No acute cardiopulmonary process. Right lobectomy surgical changes are present.
[2017-12-28 12:20] LABS: Potassium 4.3 mmol/L (3.5-5.1)
--- NOTE | 2017-12-28 12:20 | RAD REPORT ---
EXAM DESCRIPTION: CT - Chest For Pe Angio - 12/28/2017 11:49 am CLINICAL HISTORY: Chest pain, shortness of breath, history of lung cancer COMPARISON: Portable chest same date TECHNIQUE: Dynamically enhanced 3 mm thick images of the chest were obtained during administration o f approximately 150mL Isovue 370 IV contrast. Coronal and oblique reconstruction images were generate d and reviewed. Exam utilizes a protocol to evaluate the pulmonary arterial tree. All CT scans are performed using dose optimization technique as appropriate and may include automated exposure control or mA/KV adjustment according to patient size. FINDINGS: No pulmonary emboli are identified. Far peripheral branch assessment is limited by motion. The aorta as imaged shows no acute or suspicious finding. No pericardial thickening or effusion. Left lung field is clear of acute infiltrate. Small right pleural effusion is present. A 4 mm pulmona ry nodule is present in the posterior left upper lobe (image 18/78). A 4- 5 millimeter nodule is seen lateral left upper lobe (image 24/78). Atelectasis is present in the anteromedial left upper lung fi eld. In the lateral lower right lung field nodule is present 6 mm in size (image 49/78). A few additi onal smaller areas of nodularity are present in the right lung field. No large mediastinal or hilar mass. Postsurgical changes are present in the upper right mediastinum. No chest wall masses or abnormal axillary lymphadenopathy. IMPRESSION: No pulmonary emboli identified. Bilateral noncalcified pulmonary nodules are present. These are not large that need close monitoring in a patient with a history of lung cancer. No remote imaging is available for comparison. Metastatic disease is not excluded. Medial anterior right upper lung field opacification probably chronic atelectasis.
--- NOTE | 2017-12-28 12:46 | ER ---
Nurse's Notes [facility] Name: Brando Lomeli Age: 47 yrs Sex: Male : 1970 Arrival Date: 12/28/2017 Time: : Bed 18 Private MD: out of town, doctor Diagnosis: Cough;Chest pain, unspecified;Atelectasis Presentation: 12/28 09:38 Presenting complaint: Patient states: midsternal CP, mild SOB, sharp, started 1 am, iw feels like anxiety, has been out of xanax and trazodone, also reports hx of lung cancer, lip cancer, c/o mild SOB, productive cough, low grade fever. Transition of care: patient was not received from another setting of care. Onset of symptoms was December 28, 2017. Risk Assessment: Do you want to hurt yourself or someone else? Patient reports no desire to harm self or others. Initial Sepsis Screen: Does the patient meet any 2 criteria? No. Patient's initial sepsis screen is negative. Does the patient have a suspected source of infection? No. Patient's initial sepsis screen is negative. Care prior to arrival: None. 09:38 Method Of Arrival: Ambulatory iw 09:38 Acuity: JAMES 3 iw Historical: - Allergies: 09:43 NKA; iw - Home Meds: 09:45 Cephalexin Oral [Active]; Bromfed DM oral oral [Active]; alprazolam 1 mg Oral Tb24 1 iw tab once daily [Active]; Trazodone Oral [Active]; gabapentin oral oral [Active]; Tylenol #3 Oral [Active]; - PMHx: 09:43 lung cancer; lip cancer; iw - PSHx: 09:43 Lobectomy-Right lung; Lip-removed cancer; iw - Immunization history:: Adult Immunizations not up to date. - Social history:: Smoking status: Patient uses tobacco products, 5 cigarettes per day. - Ebola Screening: : Patient negative for fever greater than or equal to 101.5 degrees Fahrenheit, and additional compatible Ebola Virus Disease symptoms Patient denies exposure to infectious person Patient denies travel to an Ebola-affected area in the 21 days before illness onset No symptoms or risks identified at this time. Screenin:06 Abuse screen: Denies threats or abuse. Nutritional screening: No deficits noted. em Tuberculosis screening: No symptoms or risk factors identified. Fall Risk None identified. Assessment: 10:07 General: Appears in no apparent distress. uncomfortable, slender, Behavior is em cooperative, anxious. Pain: Complains of pain in mid-sternal area Pain does not radiate. Pain began 2-3 days ago. Neuro: Level of Consciousness is awake, alert, Oriented to person, place, time, situation. Cardiovascular: Reports nausea, Denies vomiting, Heart tones S1 S2 present Capillary refill < 3 seconds Patient's skin is warm and dry. Respiratory: Airway is patent Respiratory effort is even, unlabored. Respiratory: Reports cough that is productive, Breath sounds are clear bilaterally. Denies cough, pain with cough. GI: Abdomen is flat, Reports nausea, vomiting. : No signs and/or symptoms were reported regarding the genitourinary system. EENT: No signs and/or symptoms were reported regarding the EENT system. Derm: Skin is intact, Skin is pink, warm \T\ dry. Musculoskeletal: Range of motion: intact in all extremities. 10:30 Reassessment: Patient appears in no apparent distress at this time. I agree with above iw assessment by Ant Crowley LVN. 11:30 Reassessment: Patient appears in no apparent distress at this time. Patient and/or em family updated on plan of care and expected duration. Pain level reassessed. Patient is alert, oriented x 3, equal unlabored respirations, skin warm/dry/pink. pt request something for pain, Yarely, BANKRUPTCY JUDGE notified. 12:51 Reassessment: Patient appears in no apparent distress at this time. Patient and/or em family updated on plan of care and expected duration. Pain level reassessed. Patient is alert, oriented x 3, equal unlabored respirations, skin warm/dry/pink. Patient states feeling better. Patient states symptoms have improved. 13:28 Reassessment: Patient appears in no apparent distress at this time. Patient and/or em family updated on plan of care and expected duration. Pain level reassessed. Patient is alert, oriented x 3, equal unlabored respirations, skin warm/dry/pink. rates pain a 2/10 Patient states feeling better. Vital Signs: 09:41 BP 126 / 84; Pulse 98; Resp 18; Temp 98.1(O); Pulse Ox 100% on R/A; Weight 59.42 kg; iw Height 5 ft. 9 in. (175.26 cm); Pain 5/10; 11:40 BP 144 / 97; Pulse 76; Resp 18; Pulse Ox 100% on R/A; em 12:45 BP 124 / 84; Pulse 76; Resp 18; Pulse Ox 100% on R/A; Pain 2/10; em 13:27 BP 128 / 86; Pulse 88; Resp 16; Pulse Ox 99% ; em 09:41 Body Mass Index 19.35 (59.42 kg, 175.26 cm) iw ED Course: 09:23 Patient arrived in ED. mr 09:23 out of town, doctor is Private Physician. mr 09:32 Ant Crowley LVN is Primary Nurse. em 09:34 Yarely Mcguire FNP-C is [facility]. snw 09:34 Andre Goetz MD is Attending Physician. snw 09:41 Triage completed. iw 09:41 Arm band placed on. iw 10:05 Patient has correct armband on for positive identification. Bed in low position. Call em light in reach. Side rails up X2. Adult w/ patient. Pulse ox on. NIBP on. 10:06 No provider procedures requiring assistance completed. Patient maintains SpO2 em saturation greater than 95% on room air. 10:47 X-ray completed. Portable x-ray completed in exam room. Patient tolerated procedure tm4 well. 10:48 Chest Pa And Lat (2 Views) XRAY In Process Unspecified. EDMS 11:47 CT completed. Patient moved to CT via wheelchair. Patient moved back from CT. cw1 11:49 CT Chest For PE Angio In Process Unspecified. EDMS 13:08 IV discontinued, intact, bleeding controlled, No redness/swelling at site. Pressure em dressing applied. Administered Medications: 09:46 Not Given (other intervention used): Ativan 1 mg PO once snw 09:51 Drug: Valium 5 mg Route: PO; em 12:30 Follow up: Response: No adverse reaction em 12:05 Drug: fentaNYL (PF) 50 mcg Route: IVP; Site: right antecubital; iw 12:30 Follow up: Response: No adverse reaction; Pain is decreased em Outcome: 12:45 Discharge ordered by . snw 13:58 Discharged to home ambulatory, with family. em 13:58 Condition: good 13:58 Discharge instructions given to patient, Instructed on discharge instructions, follow up and referral plans. no drinking with medication, no driving heavy equipment, medication usage, Demonstrated understanding of instructions, follow-up care, medications, Prescriptions given X 2. 13:59 Patient left the ED. em Signatures: Dispatcher [employer] EDIA Yarely Mcguire, TIRE BUSTER-C TIRE BUSTER-Csnw Yasmine Carrillo mr Kuhn Elvie tm4 Ant Crowley, CUT IN WORKER CUT IN WORKER em Kalani Ayala, TOYA RN Trang Purcell cw1
--- NOTE | 2017-12-28 12:46 | EDPHYS ---
Physician Documentation [facility] Name: Brando Lomeli Age: 47 yrs Sex: Male : 1970 Arrival Date: 12/28/2017 Time: :23 Bed 18 Private MD: out of town, doctor ED Physician Andre Goetz HPI: 12/28 09:51 This 47 yrs old Male presents to ER via Ambulatory with complaints of Chest snw Pain, Cough. 09:51 The patient or guardian reports chest pain that is located primarily in the anterior snw chest wall. Onset: gradually. The pain does not radiate. Associated signs and symptoms: Pertinent positives: cough. The chest pain is described as sharp. Duration: The patient or guardian reports multiple episodes. Severity of pain: At its worst the pain was moderate. The patient has experienced similar episodes in the past. right upper lobe removal for lung ca on November 07, 2017, lip cancer resected 12/11/17. Historical: - Allergies: 09:43 NKA; iw - Home Meds: 09:45 Cephalexin Oral [Active]; Bromfed DM oral oral [Active]; alprazolam 1 mg Oral Tb24 1 iw tab once daily [Active]; Trazodone Oral [Active]; gabapentin oral oral [Active]; Tylenol #3 Oral [Active]; - PMHx: 09:43 lung cancer; lip cancer; iw - PSHx: 09:43 Lobectomy-Right lung; Lip-removed cancer; iw - Immunization history:: Adult Immunizations not up to date. - Social history:: Smoking status: Patient uses tobacco products, 5 cigarettes per day. - Ebola Screening: : Patient negative for fever greater than or equal to 101.5 degrees Fahrenheit, and additional compatible Ebola Virus Disease symptoms Patient denies exposure to infectious person Patient denies travel to an Ebola-affected area in the 21 days before illness onset No symptoms or risks identified at this time. ROS: 09:50 Eyes: Negative for injury, pain, redness, and discharge, ENT: Negative for injury, snw pain, and discharge, Neck: Negative for injury, pain, and swelling, Cardiovascular: Negative for chest pain, palpitations, and edema, Abdomen/GI: Negative for abdominal pain, nausea, vomiting, diarrhea, and constipation, Back: Negative for injury and pain, : Negative for injury, bleeding, discharge, and swelling, MS/Extremity: Negative for injury and deformity, Skin: Negative for injury, rash, and discoloration. 09:50 Constitutional: Positive for malaise. 09:50 Psych: Positive for anxiety. Exam: 09:48 Constitutional: This is a cachectic, anxious patient who is awake, alert, and in no snw distress. Head/Face: Normocephalic, atraumatic. Eyes: Pupils equal round and reactive to light, extra-ocular motions intact. Lids and lashes normal. Conjunctiva and sclera are non-icteric and not injected. Cornea within normal limits. Periorbital areas with no swelling, redness, or edema. Neck: Trachea midline, no thyromegaly or masses palpated, and no cervical lymphadenopathy. Supple, full range of motion without nuchal rigidity, or vertebral point tenderness. No Meningismus. Chest/axilla: Normal chest wall appearance and motion. Nontender with no deformity. No lesions are appreciated. Cardiovascular: Regular rate and rhythm with a normal S1 and S2. No gallops, murmurs, or rubs. Normal PMI, no JVD. No pulse deficits. Respiratory: Lungs have equal breath sounds bilaterally, clear to auscultation and percussion. No rales, rhonchi or wheezes noted. No increased work of breathing, no retractions or nasal flaring. Abdomen/GI: Soft, non-tender, with normal bowel sounds. No distension or tympany. No guarding or rebound. No evidence of tenderness throughout. Back: No spinal tenderness. No costovertebral tenderness. Full range of motion. Skin: Warm, dry with normal turgor. Normal color with no rashes, no lesions, and no evidence of cellulitis. MS/ Extremity: Pulses equal, no cyanosis. Neurovascular intact. Full, normal range of motion. Neuro: Awake and alert, GCS 15, oriented to person, place, time, and situation. Cranial nerves II-XII grossly intact. Motor strength 5/5 in all extremities. Sensory grossly intact. Cerebellar exam normal. Normal gait. 09:48 ENT: Mouth: Lips: area of recent excision with poor wound margins with prolene sutures still in place to left lower lip. 09:48 Psych: Behavior/mood is anxious, Affect is calm, Oriented to person, place, time. Vital Signs: 09:41 BP 126 / 84; Pulse 98; Resp 18; Temp 98.1(O); Pulse Ox 100% on R/A; Weight 59.42 kg; iw Height 5 ft. 9 in. (175.26 cm); Pain 5/10; 11:40 BP 144 / 97; Pulse 76; Resp 18; Pulse Ox 100% on R/A; em 12:45 BP 124 / 84; Pulse 76; Resp 18; Pulse Ox 100% on R/A; Pain 2/10; em 13:27 BP 128 / 86; Pulse 88; Resp 16; Pulse Ox 99% ; em 09:41 Body Mass Index 19.35 (59.42 kg, 175.26 cm) iw MDM: 09:35 Patient medically screened. snw 13:15 Data reviewed: vital signs, nurses notes. Data interpreted: Pulse oximetry: on room air snw is 100 %. Interpretation: normal. Counseling: I had a detailed discussion with the patient and/or guardian regarding: the historical points, exam findings, and any diagnostic results supporting the discharge/admit diagnosis, the presence of at least one elevated blood pressure reading (>120/80) during this emergency department visit, lab results, radiology results, the need for outpatient follow up. Special discussion: Based on the patient's history, exam, and Dx evaluation, there is no indication for emergent intervention or inpatient Tx. It is understood by the patient/guardian that if the Sx's persist or worsen they need to return immediately for re-evaluation. Based on the history and exam findings, there is no indication for further emergent testing or inpatient evaluation. I discussed with the patient/guardian the need to see the primary care provider for further evaluation of the symptoms. I discussed with the patient/guardian the need to see the manager dairy for further evaluation of the symptoms. 12/28 11:07 Order name: CBC with Diff; Complete Time: 11:50 snw 12/28 11:07 Order name: Chem 7; Complete Time: 12:39 snw 12/28 09:40 Order name: Chest Pa And Lat (2 Views) XRAY; Complete Time: 12:05 snw 12/28 11:07 Order name: CT Chest For PE Angio; Complete Time: 12:39 snw 12/28 11:07 Order name: Blood Culture* snw Administered Medications: 09:46 Not Given (other intervention used): Ativan 1 mg PO once snw 09:51 Drug: Valium 5 mg Route: PO; em 12:30 Follow up: Response: No adverse reaction em 12:05 Drug: fentaNYL (PF) 50 mcg Route: IVP; Site: right antecubital; iw 12:30 Follow up: Response: No adverse reaction; Pain is decreased em Disposition: 12/28/17 12:45 Discharged to Home. Impression: Cough, Chest pain, unspecified, Atelectasis. - Condition is Stable. - Discharge Instructions: Atelectasis, Adult, Nonspecific Chest Pain, Cool Mist Vaporizer, Chest Wall Pain, [id number], Cough, Adult, [id number]. - Prescriptions for Tylenol- Codeine #3 300-30 mg Oral Tablet - take 2 tablets by ORAL route every 6 hours As needed; 15 tablet. Xanax 0.5 mg Oral Tablet - take 1 tablet by ORAL route 1-2 times daily As needed; 8 tablet. - Medication Reconciliation Form, Thank You Letter, Antibiotic Education, Prescription Opioid Use form. - Follow up: Private Physician; When: 1 - 2 days; Reason: Recheck today's complaints, Continuance of care, Re-evaluation by your physician. Follow up: Emergency Department; When: As needed; Reason: Worsening of condition. Addendum: 12/29/2017 15:17 Co-signature as Attending Physician, Andre fitzgerald Signatures: Dispatcher [employer] Andre Piña MD MD cha Therrien, Shelly, BUILDING CONSTRUCTION PROFESSOR-C BUILDING CONSTRUCTION PROFESSOR-Gilmaw Ant Crowley, CANDLES POURER CANDLES POURER em Kalani Ayala, TOYA RN iw Corrections: (The following items were deleted from the chart) 12/28 13:59 12:45 12/28/2017 12:45 Discharged to Home. Impression: Cough; Chest pain, unspecified; em Atelectasis. Condition is Stable. Forms are Medication Reconciliation Form, Thank You Letter, Antibiotic Education, Prescription Opioid Use. Follow up: Private Physician; When: 1 - 2 days; Reason: Recheck today's complaints, Continuance of care, Re-evaluation by your physician. Follow up: Emergency Department; When: As needed; Reason: Worsening of condition. snw
== END 2017-12-28 13:59 | disposition home or self-care (01) ==
LOC: ER 09:20
DX: R07.9 Chest pain, unspecified (principal); J98.11 Atelectasis; F17.210 Nicotine dependence, cigarettes, uncomplicated; Z85.118 Personal history of other malignant neoplasm of bronchus and lung; Z85.819 Personal history of malignant neoplasm of unspecified site of lip, oral cavity, and pharynx; Z90.2 Acquired absence of lung [part of]
CPT/HCPCS: 36415; 71046; 71275; 80048; 85025; 87040; 96374; 99285; J3010; Q9967

== ENCOUNTER 2018-01-28 06:41 | Emergency (ER) | payer BC ==
--- OUTSIDE RECORDS SUMMARY | 2018-01-28 06:43 | XMS REPORT | Clinical Summary ---
:1970 Author Organization [facility] Address [address] [place] [address] Care Team Providers Name Role Phone Asked, [...] Encounters Date Type Specialty Care Team Description 01/19/2018 Telephone Oncology Demario Kyle MD 12/24/2017 Telephone Cardiothoracic Shawn, Surgery Aarti Cooper, WINDOWS DEPLOYMENT TECHNICIAN 12/17/2017 Hospital Encounter General Surgery Tonya Lin Neoplasm of MD Reji uncertain behavior of skin 12/17/2017 Procedure Pass General Surgery 12/17/2017 Surgery General Surgery Tonya Lin EXCISION ROSAOS MD Reji CELL CARCINOMA LEFT LOWER LIP, [...] MD 11/13/2017 Telephone Cardiothoracic Shawn, Surgery Aarti Cooper, DALE 11/11/2017 Telephone Cardiothoracic Shawn, Surgery Aarti Cooper, DALE 11/07/2017 Hospital Encounter Cardiology Luc Pizano Lung nodule - MD Norma 11/10/2017 11/07/2017 Anesthesia Event Cardiothoracic Claribel, Surgery MAVERICK Maher 11/07/2017 Procedure Pass Cardiothoracic Surgery 11/07/2017 Surgery Cardiothoracic Luc Pizano ROBOTIC ASSISTED Surgery MD Norma THORACOSCOPIC RIGHT UPPER LOBE WEDGE RESECTION, POSSIBLE LOBECTOMY, MEDIASTINAL LYMPH NODE DISSECTION 11/06/2017 Telephone Cardiothoracic Shawn, Surgery Aarti Cooper, WINDOWS DEPLOYMENT TECHNICIAN 11/04/2017 Telephone Oncology Demario Kyle MD 10/27/2017 Lab Lab Luc Pizano MD 10/27/2017 Orders Only Cardiothoracic Luc Pizano Surgery MD Norma 10/27/2017 Transcribe Orders Procedural Cardiology HarinderGarethdevorah Lung nodule ; MD Suhas Pre-op testing 10/22/2017 Telephone Cardiothoracic Alicia, Surgery [place], [place] 10/20/2017 Refill Oncology Demario Kyle MD 10/16/2017 Office Visit Cardiothoracic Luc Pizano Lung nodule (Primary Dx ); Surgery MD Norma Pre-op testing 10/16/2017 Hospital Encounter Pulmonology Luc Pizano MD 10/16/2017 Orders Only Cardiothoracic Provider, Rd Toure MD 10/16/2017 Oncology Oncology Deborah Nath RN 10/08/2017 Telephone Cardiothoracic Alicia, Surgery [place], [place] 10/08/2017 Telephone Cardiothoracic Ambrosio, Surgery [place], [place] 10/08/2017 Telephone Cardiothoracic Ambrosio Surgery [place], [place] 10/08/2017 Orders Only Oncology Misa Melendez RN 10/08/2017 Telephone Oncology Demario Kyle MD 10/08/2017 Orders Only Cardiothoracic Alicia, Malignant neoplasm Surgery [place], [place] of lung, unspecified laterality, unspecified part of lung (Primary Dx) 10/06/2017 Hospital Encounter Radiology Saroj, Malignant neoplasm Demario Osuna, of lung, unspecified laterality, unspecified part of [...] pain, unspecified type Marko Galo MD after 01/27/2017 Family History Medical History Relation Name Comments [...] 12/17/2017 6:18 AM CDT Plan of Treatment Date Type Specialty Care Team Description 02/04/2018 Office Visit Oncology Demario Kyle MD [address] [place] [address] Health Maintenance Due Date Last Done Comments INFLUENZA VACCINE 01/07/2018 Procedures Procedure Name Priority Date/Time Associated Comments Diagnosis SURGICAL PATHOLOGY Routine 12/17/2017 10:33 Results for this REQUEST AM CDT procedure are in the results section. IN AN ELECTIVE Routine 12/17/2017 10:29 ENDOTRACHEAL AIRWAY AM CDT Procedure Note - Tonya Mendez CRNA - 12/17/2017 10:29 AM CDT Airway Date/Time: 12/17/2017 10:03 AM Performed by: TONYA MENDEZ Authorized by: ARSALAN HE Location: OR Urgency: Elective Difficult Airway: No Resident/SWAGING MACHINE ADJUSTER/AA: TONYA MENDEZ Performed by: resident/SWAGING MACHINE ADJUSTER/AA Preoxygenated with 100% O2: Yes C-spine Precautions [...] 7:58 AM Staff: Anesthesiologist: LILLI GRAJEDA JR. Resident/SWAGING MACHINE ADJUSTER/AA: MARJORIE SANFORD Performed by: Resident/SWAGING MACHINE ADJUSTER/AA Pre-procedure: patient identified, IV checked, site and [...] the procedure well with no immediate complications IN AN ELECTIVE ENDOTRACHEAL AIRWAY Routine 11/07/2017 8:25 [...] SPIROMETRY, DIFFUSION Routine 10/16/2017 10:03 Malignant neoplasm Results for this AM CDT of lung, procedure are in unspecified the results laterality, section. unspecified part of lung PULMONARY FUNCTION TEST Routine 10/16/2017 12:[address] SKULL BASE TO Routine 10/06/2017 10:09 Malignant neoplasm Results for this MID THIGH AM CDT of lung, procedure are in unspecified the results laterality, section. unspecified part of lung POC GLUCOSE Routine 10/06/2017 8:45 Results for this AM CDT procedure are in the results section. ED REFERRAL TO [place] Routine 09/22/2017 8:44 CATHOLIC PHYSICIAN PM CDT ORGANIZATION CT CHEST W [...] procedure are in the results section. after 01/27/2017 Results Surgical pathology request (12/17/2017 10:33 AM)Only the most recent of5 resultswithin the time period is included. [facility] DEPARTMENT OF PATHOLOGY AND GENOMIC MEDICINE Surgical pathology report See link below for PDF [facility] DEPARTMENT OF Lab Report PATHOLOGY AND GENOMIC MEDICINE Result status This is Final Report to [facility] DEPARTMENT OF [id number] PATHOLOGY AND GENOMIC MEDICINE Performing Organization Address City/State/Zipcode Phone Number [facility] DEPARTMENT OF PATHOLOGY AND [facility] [place] [address] GENOMIC MEDICINE CBC with platelet and differential (12/17/2017 6:33 AM)Only the most recent of4 resultswithin the time period is included. WBC 7.8 4.2 - 11.0 k/uL [facility] DEPARTMENT OF PATHOLOGY AND GENOMIC MEDICINE RBC 4.77 4.04 - 5.86 m/uL [facility] DEPARTMENT OF PATHOLOGY AND GENOMIC MEDICINE HGB 13.9 13.0 - 17.3 g/dL [facility] DEPARTMENT OF PATHOLOGY AND GENOMIC MEDICINE HCT 44.2 34.0 - 45.0 % [facility] DEPARTMENT OF PATHOLOGY AND GENOMIC MEDICINE MCV 92.7 80.0 - 98.0 fL [facility] DEPARTMENT OF PATHOLOGY AND GENOMIC MEDICINE MCH 29.1 27.0 - 34.0 pg [facility] DEPARTMENT OF PATHOLOGY AND GENOMIC MEDICINE MCHC 31.4 (L) 31.5 - 36.5 g/dL [facility] DEPARTMENT OF PATHOLOGY AND GENOMIC MEDICINE RDW - SD 51.2 (H) 37.0 - 51.0 fL [facility] DEPARTMENT OF PATHOLOGY AND GENOMIC MEDICINE MPV 9.5 7.4 - 10.4 fL [facility] DEPARTMENT OF PATHOLOGY AND GENOMIC MEDICINE Platelet count 294 150 - 400 k/uL [facility] DEPARTMENT OF PATHOLOGY AND GENOMIC MEDICINE Nucleated RBC 0.00 /100 WBC [facility] DEPARTMENT OF PATHOLOGY AND GENOMIC MEDICINE Neutrophils 44.1 36.0 - 66.0 % [facility] DEPARTMENT OF PATHOLOGY AND GENOMIC MEDICINE Lymphocytes 34.8 24.0 - 44.0 % [facility] DEPARTMENT OF PATHOLOGY AND GENOMIC MEDICINE Monocytes 8.9 (H) 0.0 - 6.0 % [facility] DEPARTMENT OF PATHOLOGY AND GENOMIC MEDICINE Eosinophils 10.5 (H) 0.0 - 6.0 % [facility] DEPARTMENT OF PATHOLOGY AND GENOMIC MEDICINE Basophils 1.3 (H) 0.0 - 1.2 % [facility] DEPARTMENT OF PATHOLOGY AND GENOMIC MEDICINE Immature granulocytes 0.4 0.0 - 1.0 % [facility] DEPARTMENT OF PATHOLOGY AND GENOMIC MEDICINE Specimen Blood Performing Organization Address City/State/Zipcode Phone Number [facility] DEPARTMENT OF PATHOLOGY AND [facility] [place] [address] [facility] MEDICINE XR Chest 1 Vw Portable (11/10/2017 [...] in the left lung base, otherwise stable [id number] Procedure Note Hm Interface, Radiology Results Incoming - 11/10/2017 7:31 AM CDT EXAMINATION: XR CHEST 1 VW PORTABLE CLINICAL HISTORY: Post-op surgery COMPARISON: Yesterday IMPRESSION: Soft tissue gas in the right supraclavicular and subclavian region partially visualized, grossly stable. No pneumothorax identified. Stable moderate right hemidiaphragmatic elevation. Better aeration in the left lung base, otherwise stable [id number] Performing Organization Address City/State/Zipcode Phone Number [facility] [address] [place] [address] Estimated GFR (11/08/2017 12:39 AM)Only the most recent of2 resultswithin the time period is included. GFR Non Af Amer >90 mL/min/1.73 m2 [facility] DEPARTMENT OF PATHOLOGY AND GENOMIC MEDICINE GFR Af Amer >90 mL/min/1.73 m2 [facility] DEPARTMENT OF Comment: PATHOLOGY AND GENOMIC Chronic [...] Americans. Specimen Plasma specimen Performing Organization Address [facility] Phone Number [facility] DEPARTMENT OF PATHOLOGY AND [address] [place] [address] Private Practice Troponin (11/08/2017 12:39 AM)Only the most recent of2 resultswithin the time period is included. Troponin <0.30 0.00 - 0.30 ng/mL [facility] DEPARTMENT OF PATHOLOGY Comment: AND GENOMIC MEDICINE 0.30 - 1.49 ng/mlMay indicate increased risk of acute coronary syndrome. >=1.5 ng/mlConsistent with acute myocardial infarction. The diagnostic value of a single normal or non-diagnostic result is questionable.Serial samples at 2-6 hour intervals are required to rule out acute myocardial injury. Specimen Plasma specimen Performing Organization Address City/[facility]/Zipcode Phone Number [facility] DEPARTMENT OF PATHOLOGY AND [address] [place] [address] [facility] Phosphorus level (11/08/2017 12:39 AM) Phosphorus 3.3 2.4 - 4.5 mg/dL [facility] DEPARTMENT OF PATHOLOGY AND GENOMIC MEDICINE Specimen Plasma specimen Performing Organization Address City/[facility] Phone Number [facility] DEPARTMENT OF PATHOLOGY AND [address] [place] [address] Magnesium level (11/08/2017 12:39 AM) Magnesium 1.8 1.6 - 2.6 mg/dL [facility] DEPARTMENT OF PATHOLOGY AND GENOMIC MEDICINE Specimen Plasma specimen Performing Organization Address City/[facility] Phone Number [facility] DEPARTMENT OF PATHOLOGY AND [address] [place] [address] MEDICINE Basic metabolic panel (11/08/2017 12:39 AM) Sodium 135 135 - 148 mEq/L [facility] DEPARTMENT OF PATHOLOGY AND GENOMIC MEDICINE Potassium 4.8 3.5 - 5.0 mEq/L [facility] DEPARTMENT OF PATHOLOGY AND GENOMIC MEDICINE Chloride 101 98 - 112 mEq/L [facility] DEPARTMENT OF PATHOLOGY AND GENOMIC MEDICINE CO2 24 24 - 31 mEq/L [facility] DEPARTMENT OF PATHOLOGY AND GENOMIC MEDICINE Anion gap 10@ANIO 7 - 15 mEq/L [facility] DEPARTMENT OF PATHOLOGY AND GENOMIC MEDICINE BUN 8 6 - 20 mg/dL [facility] DEPARTMENT OF PATHOLOGY AND GENOMIC MEDICINE Creatinine 0.9 0.7 - 1.2 mg/dL [facility] DEPARTMENT OF PATHOLOGY AND GENOMIC MEDICINE Glucose 164 (H) 65 - 99 mg/dL [facility] DEPARTMENT OF PATHOLOGY AND GENOMIC MEDICINE Calcium 8.3 8.3 - 10.2 mg/dL [facility] DEPARTMENT OF PATHOLOGY AND GENOMIC MEDICINE Specimen Plasma specimen Performing Organization Address [facility] Phone Number [facility] DEPARTMENT OF PATHOLOGY AND [address] [place] [address] Arterial blood gas (11/08/2017 12:38 AM)Only the most recent of2 resultswithin the time period is included. pH, arterial 7.40 7.35 - 7.45 [facility] DEPARTMENT OF PATHOLOGY AND GENOMIC MEDICINE pCO2, arterial 43 35 - 45 mmHg [facility] DEPARTMENT OF PATHOLOGY AND GENOMIC MEDICINE pO2, arterial 111 (H) 80 - 90 mmHg [facility] DEPARTMENT OF PATHOLOGY AND GENOMIC MEDICINE Bicarbonate, arterial 25.8 21.0 - 28.0 mmol/L [facility] DEPARTMENT OF PATHOLOGY AND GENOMIC MEDICINE Base excess, arterial 1 -2 - 2 mEq/L [facility] DEPARTMENT OF PATHOLOGY AND GENOMIC MEDICINE O2 saturation, arterial 98 95 - 100 % [facility] DEPARTMENT OF PATHOLOGY AND GENOMIC MEDICINE Specimen Blood Performing Organization Address [facility] Phone Number [facility] DEPARTMENT OF PATHOLOGY AND [address] [place] [address] GENOMIC MEDICINE POC glucose (11/08/2017 12:33 AM)Only the most recent of2 resultswithin the time period is included. POC glucose 142 (H) 65 - 99 mg/dL [facility] DEPARTMENT OF PATHOLOGY AND Comment: GENOMIC MEDICINE [facility] Notified RN Meter ID: [id number] Mechanic Field Service: Armani Soto Performing Organization Address [facility] Phone Number [facility] DEPARTMENT OF PATHOLOGY AND [address] [place] [address] MEDICINE ECG 12 lead (11/08/2017 12:30 AM)Only the most recent of3 resultswithin the time period is included. Ventricular rate 79 [facility] Atrial rate 79 [facility] IN interval 146 [facility] QRSD interval 90 [facility] QT interval 340 [facility] QTC interval 389 [facility] P axis 1 65 [facility] QRS axis 1 90 [facility] T wave axis 50 [facility] EKG impression Normal sinus rhythm-Possible Left atrial [facility] MUSE enlargement-Rightward axis-Borderline ECG-In automated comparison with ECG of 27-OCT-2017 13:41,-No significant change was found- Performing Organization Address [facility] Phone Number [facility] MUSE [address] [place] [phone] Sodium level, syringe (11/07/2017 12:16 PM)Only the most recent of3 resultswithin the time period is included. Sodium, syringe 134 (L) 135 - 148 mEq/L [facility] DEPARTMENT OF PATHOLOGY AND GENOMIC MEDICINE Specimen Blood Performing Organization Address [facility] Phone Number [facility] DEPARTMENT OF PATHOLOGY AND [address] [place], [place] [id number] [facility] MEDICINE Potassium, syringe (11/07/2017 12:16 PM)Only the most recent of3 resultswithin the time period is included. Potassium, syringe 4.8 3.5 - 5.0 mEq/L [facility] DEPARTMENT OF PATHOLOGY AND GENOMIC MEDICINE Specimen Blood Performing Organization Address City/State/Zipcode Phone Number [facility] DEPARTMENT OF PATHOLOGY AND [address] [place] [address] Ionized calcium, arterial (11/07/2017 12:16 PM)Only the most recent of3 resultswithin the time period is included. Ionized calcium, arterial 1.09 (L) 1.11 - 1.32 mmol/L [facility] DEPARTMENT OF PATHOLOGY AND GENOMIC MEDICINE Specimen Blood Performing Organization Address City/[facility] Phone Number [facility] DEPARTMENT OF PATHOLOGY AND [address] [place] [address] Hemoglobin, syringe (11/07/2017 12:16 PM)Only the most recent of3 resultswithin the time period is included. Hemoglobin, syringe 13.1 (L) 14.0 - 18.0 g/dL [facility] DEPARTMENT OF PATHOLOGY AND GENOMIC MEDICINE Specimen Blood Performing Organization Address [facility] Phone Number [facility] DEPARTMENT OF PATHOLOGY AND [address] [place] [address] Glucose level, syringe (11/07/2017 12:16 PM)Only the most recent of3 resultswithin the time period is included. Glucose, syringe 122 (H) 65 - 99 mg/dL [facility] DEPARTMENT OF PATHOLOGY AND GENOMIC MEDICINE Specimen Blood Performing Organization Address [facility] Phone Number [facility] DEPARTMENT OF PATHOLOGY AND [address] [place] [address] Miscellaneous referral test (11/07/2017 10:53 AM) [facility] test name [facility] test result see note [facility] Comment: MET FISH Sample type: Paraffin, lung Case# [id number] RESULTS: NEGATIVE Interpretation: MET(7q31) signals per nucleus: [...] assay was scored manually by a certified magnetic resonance technologist. Two or more independent areas containing invasive tumor were analyzed and the technical results underwent further review for quality control lab tech purposes. Reference range: Positive: MET(7q31) to CEN7 signal ration is >/=2.0 or when 10% of tumor cells contain clusters of >15 copies per cell of MET (7q31) signals. Negative: MET(7q31) to CEN7 signal ratio is <2.0 Equivocal: MET copy number >/=5.0 and MET/CEN7 ratio <2.0 Probe set details: MET: nuc christiano(CEN7x2.5,METx2.6)[50] Nuclei scored: 50 Test(s) performed by: [employer] [facility] Narrative Performed At [facility] [id number] Performing Organization Address City/[facility]/Zipcode Phone Number [facility] [address] [place] [address] Arterial blood gas, corrected (11/07/2017 10:27 AM)Only the most recent of2 resultswithin the time period is included. pH, arterial 7.24 (L) 7.35 - 7.45 [facility] DEPARTMENT OF PATHOLOGY AND GENOMIC MEDICINE pCO2, arterial 64 (HH) 35 - 45 mmHg [facility] DEPARTMENT OF PATHOLOGY AND GENOMIC MEDICINE pO2, arterial 187 (H) 80 - 90 mmHg [facility] DEPARTMENT OF PATHOLOGY AND GENOMIC MEDICINE Temperature, Celsius 36.4 Degrees C [facility] DEPARTMENT OF PATHOLOGY AND GENOMIC MEDICINE O2 saturation, arterial 99 95 - 100 % [facility] DEPARTMENT OF PATHOLOGY AND GENOMIC MEDICINE pH, arterial corrected 7.25 [facility] DEPARTMENT OF PATHOLOGY AND GENOMIC MEDICINE pCO2, arterial corrected 62 mmHg [facility] DEPARTMENT OF PATHOLOGY AND GENOMIC MEDICINE pO2, arterial corrected 184 mmHg [facility] DEPARTMENT OF PATHOLOGY AND GENOMIC MEDICINE Base excess, arterial -2 -2 - 2 mEq/L [facility] DEPARTMENT OF PATHOLOGY AND GENOMIC MEDICINE Specimen Blood Performing Organization Address City/State/Zipcode Phone Number [facility] DEPARTMENT OF PATHOLOGY AND [address] [place] [address] Private Practice Prepare RBC (10/27/2017 1:40 PM) Product name Apheresis Red Cell AS3 #1 [facility] DEPARTMENT OF PATHOLOGY AND GENOMIC MEDICINE Unit number [id number] [facility] DEPARTMENT OF PATHOLOGY AND GENOMIC MEDICINE Product code [id number] [facility] DEPARTMENT OF PATHOLOGY AND GENOMIC MEDICINE Dispense status Returned to [facility] DEPARTMENT OF transfused PATHOLOGY AND GENOMIC MEDICINE Blood expiration date [facility] DEPARTMENT OF PATHOLOGY AND GENOMIC MEDICINE Blood type code 0600 [facility] DEPARTMENT OF PATHOLOGY AND GENOMIC MEDICINE Blood type A NEGATIVE [facility] DEPARTMENT OF PATHOLOGY AND GENOMIC MEDICINE Product name Apheresis Red Cell AS3 #2 LR [facility] DEPARTMENT OF PATHOLOGY AND GENOMIC MEDICINE Unit number [id number] [facility] DEPARTMENT OF PATHOLOGY AND GENOMIC MEDICINE Product code [id number] [facility] DEPARTMENT OF PATHOLOGY AND GENOMIC MEDICINE Dispense status Returned to BB not [facility] DEPARTMENT OF transfused PATHOLOGY AND GENOMIC MEDICINE Blood expiration date [facility] DEPARTMENT OF PATHOLOGY AND GENOMIC MEDICINE Blood type code 0600 [facility] DEPARTMENT OF PATHOLOGY AND GENOMIC MEDICINE Blood type A NEGATIVE [facility] DEPARTMENT OF PATHOLOGY AND GENOMIC MEDICINE Performing Organization Address City/[facility]/Zipcode Phone Number [facility] DEPARTMENT OF PATHOLOGY AND [address] [place] [phone] GENOMIC MEDICINE Type and screen (10/27/2017 1:40 PM) ABO grouping A [facility] DEPARTMENT OF PATHOLOGY AND GENOMIC MEDICINE Rh type NEG [facility] DEPARTMENT OF PATHOLOGY AND GENOMIC MEDICINE Antibody screen (gel) NEG [facility] DEPARTMENT OF PATHOLOGY AND GENOMIC MEDICINE Performing Organization Address City/[facility] Phone Number [facility] DEPARTMENT OF PATHOLOGY AND [address] [place] [address] [facility] MEDICINE Partial thromboplastin time, activated (10/27/2017 1:30 PM) PTT 27 22 - 34 sec [facility] [place] Comment: This test has not been validated for monitoring unfractionated heparin therapy. For testing that is validated for this type of therapy, please refer to the Heparin Anti-Xa assay (test code 82221). For additional information, please refer to http://education.Nezasa/faq/CQX457 (This link is being provided for informational/educational purposes only.) Narrative Performed At FASTING: UNKNOWN [facility]ST Resulting Agency Comment Performing Organization Information: Site ID: [id number] Name: [facility] [employer] Address: [address] [place] [phone] Director: Verónica Villatoro Performing Organization Address City/State/Zipcode Phone Number [facility] [address] [address] Prothrombin time with INR (10/27/2017 1:30 PM) INR 1.0 [facility] [place] Comment: Reference Range 0.9-1.1 Moderate-intensity Warfarin Therapy 2.0-3.0 Higher-intensity Warfarin Therapy 3.0-4.0 Prothrombin time 10.8 9.0 - 11.5 sec [facility] [place] Comment: For more information on this test, go to: http://education.ImageSpike/faq/LIK705 Narrative Performed At FASTING: UNKNOWN [facility]ST Resulting Agency Comment Performing Organization Information: Site ID: [id number] Name: [facility] Address: [address] [place] [phone] Director: Verónica Villatoro Performing Organization Address City/State/Zipcode Phone Number [facility] [address] [address] Comprehensive metabolic panel (10/27/2017 1:30 PM)Only the most recent of2 resultswithin the time period is included. Glucose 84 65 - 99 mg/dL [facility] Comment: [place] Fasting reference interval BUN, whole blood 9 7 - 25 mg/dL [facility] [place] Creatinine 0.85 0.60 - 1.35 mg/dL [facility] [place] EGFR Non-Afr. Togolese 104 > OR=60 [facility] mL/min/1.73m2 [place] EGFR 120 > OR=60 [facility] mL/min/1.73m2 [place] BUN/creatinine ratio NOT APPLICABLE 6 - 22 (calc) [facility] [place] Sodium 138 135 - 146 mmol/L [facility] [place] Potassium 4.5 3.5 - 5.3 mmol/L [facility] [place] Chloride 102 98 - 110 mmol/L [facility] [place] CO2 31 20 - 31 mmol/L [facility] [place] Calcium 9.2 8.6 - 10.3 mg/dL [facility] [place] Protein 6.2 6.1 - 8.1 g/dL [facility] [place] Albumin, S 3.7 3.6 - 5.1 g/dL [facility] [place] Globulin, total 2.5 1.9 - 3.7 g/dL [facility] (calc) [place] Albumin/globulin ratio 1.5 1.0 - 2.5 (calc) [facility] [place] Total bilirubin 0.2 0.2 - 1.2 mg/dL [facility] [place] Alkaline phosphatase 77 40 - 115 U/L [facility] [place] AST 15 10 - 40 U/L [facility] [place] ALT 15 9 - 46 U/L [facility] [place] Narrative Performed At FASTING: UNKNOWN [facility] Resulting Agency Comment Performing Organization Information: Site ID: [id number] Name: [employer] Address: [address] [place] [address] Director: Verónica Villatoro Performing Organization Address City/State/Zipcode Phone Number [facility] [place] [address] [place] [address] Spirometry, diffusion (10/16/2017 10:03 AM) FEV1 Pre 3.19 3.13 - 4.66 L [facility] FEV1/FVC % Pre 71.15 68.68 - 88.03 % [facility] FVC Pre 4.48 4.06 - 5.87 L [facility] PEF Pre 8.69 7.48 - 11.98 L/s [facility] FEF 25-75% Pre 2.02 1.98 - 5.08 L/s [facility] DLCO Pre 16.86 23.04 - 38.96 ml/(min*mmHg) [facility] DL/VA Pre 2.50 3.50 - 5.91 ml/(min*mmHg*L) [facility] VA SB Pre 6.73 5.26 - 7.99 L [facility] DLCOc Pre 16.86 23.04 - 38.96 ml/(min*mmHg) [facility] KCOc SB Pre 2.50 3.50 - 5.91 ml/(min*mmHg*L) [facility] Hb Pre 14.60 g(Hb)/dL [facility] FEV1 Predicted 3.89 [facility] FEV1 LLN 3.13 [facility] FEV1 % Pre of Predicted 81.9 % [facility] FVC Predicted 4.97 [facility] FVC LLN 4.06 [facility] FVC % Pre of Predicted 90.2 % [facility] FEV1/FVC % Predicted 78 [facility] FEV1/FVC % LLN 69 [facility] FEV1/FVC % Pre of Predicted 90.8 % [facility] FEF 25-75% Predicted 3.53 [facility] FEF 25-75% LLN 1.98 [facility] FEF 25-75% % Pre of Predicted 57.3 % [facility] PEF Predicted 9.73 [facility] PEF LLN 7.48 [facility] PEF % Pre of Predicted 89.3 % [facility] VC Predicted 4.97 [facility] VC LLN 4.06 [facility] ERV Predicted 1.33 [facility] ERV LLN 1.33 [facility] FRCpl % Predicted 3.43 [facility] FRCpl % LLN 2.45 [facility] IC Predicted 3.39 [facility] IC LLN 3.39 [facility] RV Predicted 2.10 [facility] RV LLN 1.43 [facility] RV % TLC Predicted 32 [facility] RV % TLC LLN 23 [facility] TLC Predicted 6.92 [facility] TLC LLN 5.77 [facility] Raw Predicted 3.06 [facility] Raw LLN 3.06 [facility] R0.5IN Predicted 3.06 [facility] R0.5IN LLN 3.06 [facility] sGaw Predicted 0.08 [facility] sGaw LLN 0.08 [facility] DLCO Predicted 31.00 [facility] DLCO LLN 23.04 [facility] DLCO % Pre of Predicted 54.4 % [facility] DLCOc Predicted 31.00 [facility] DLCOc LLN 23.04 [facility] DLCOc % Pre of Predicted 54.4 % [facility] DL/VA Predicted 4.70 [facility] DL/VA LLN 3.50 [facility] DL/VA % Pre of Predicted 53.2 % [facility] KCOc SB Predicted 4.70 [facility] KCOc SB LLN 3.50 [facility] KCO[facility] SB % Pre of Predicted 53.2 % [facility] VA SB Predicted 6.63 [facility] VA SB LLN 5.26 [facility] VA SB % Pre of Predicted 101.6 % [facility] MIP Predicted 95.36 [facility] MIP LLN 44.90 [facility] MEP Predicted 140.43 [facility] MEP LLN 78.79 [facility] MVV Predicted 147 [facility] MVV LLN 125 [facility] Performing Organization Address City/State/Zipcode Phone Number [facility] [address] [place] [address] Pulmonary function tests, complete (10/16/2017) Narrative Performed At PET/CT Skull Base To Mid Thigh (10/06/2017 10:09 AM) Narrative Performed At PROCEDURE:PET CT SKULL BASE TO MID THIGH [facility] INDICATION:Initial staging lung cancer. TECHNIQUE:Blood glucose [...] malignancy, with no evidence for metastatic disease. [id number] Procedure Note [facility], Radiology Results - 10/06/2017 10:49 AM CDT PROCEDURE: PET [...] malignancy, with no evidence for metastatic disease. [id number] Performing Organization Address City/State/Zipcode Phone Number [facility] [address] [place] [address] CT Chest W Contrast (09/22/2017 4:10 PM) Narrative Performed At EXAMINATION:CT CHEST W CONTRAST [facility] CLINICAL HISTORY:Lung mass TECHNIQUE:Multiple axial images of [...] unremarkable. 5.No suspicious osseous lesions are seen. [id number] Procedure Note [facility], Radiology Results Incoming - 09/22/2017 5:59 PM [...] 5. No suspicious osseous lesions are seen. [id number] Performing Organization Address City/State/Zipcode Phone Number [facility] [address] [place] [address] XR Chest 2 Vw (09/22/2017 2:54 PM) Narrative Performed At XR CHEST 2 VW [facility] CLINICAL INDICATION:Chest Pain COMPARISON:None available IMPRESSION: There [...] participate in the care of your patient. [id number] Procedure Note Interface, Radiology Results Incoming - [...] participate in the care of your patient. [id number] Performing Organization Address [facility] Phone Number [facility] [address] [place] [address] ECG ED Preliminary Interpretation - NOT AN ORDER (09/22/2017 2:50 PM) Narrative Performed At Marko Galo MD 09/24/20171:45 AM ECG ED Preliminary Interpretation - Not an Order Performed by: KALIE DUPONT Authorized by: KALIE DUPONT ECG reviewed by ED Physician in the absence of a employee relation manager: yes Previous ECG: Previous ECG:Compared to current Similarity:No change Interpretation: Interpretation: abnormal Rate: ECG rate:85 ECG rate assessment: normal Rhythm: Rhythm: sinus rhythm Ectopy: Ectopy: none QRS: QRS axis:Right QRS intervals:Normal ST segments: ST segments:Normal T waves: T waves: normal B natriuretic peptide (09/22/2017 2:19 PM) BNP 40 0 - 100 pg/mL [facility] DEPARTMENT OF PATHOLOGY AND GENOMIC MEDICINE Specimen Blood Performing Organization Address [facility] Phone Number [facility] DEPARTMENT OF PATHOLOGY AND [address] [place] [address] GENOMIC MEDICINE after 01/27/2017 Insurance Payer Benefit Plan / Group Subscriber ID Type Phone Address BCBS BCBS CHOICE PPO/F[employer]ERAL EMPL PPO xxxxxxxxxxxx PPO [phone] [place], [place] [phone]
[2018-01-28] MEDS ORDERED: KETOROLAC 30 MG/ML INJ ONE (07:36)
[2018-01-28 07:47] LABS: Potassium 3.2 mmol/L (3.5-5.1)
[2018-01-28 07:52] LABS: Absolute Lymphocytes (CBC) 2.7 K/uL (0.7-4.9); Absolute Monocytes 1.1 K/uL (0.1-1.3); Absolute Neutrophil 5.9 K/uL (1.8-8.0); Basophils % 0.2 % (0-1.3); Eosinophils % 2.5 % (0-4.4); Hematocrit 45.9 % (39.6-49.0); Lymphocytes % 27.4 % (15.3-44.8); MCH 29.6 pg (27.0-35.0); MPV 8.4 fL (7.6-11.3); Monocytes % 10.7 % (3.3-12.3); RBC Red Blood Cell Count 5.27 M/uL (4.33-5.43)
[2018-01-28] MEDS ORDERED: NA CHLORIDE 0.9% 1,000 ML ONE (08:09)
[2018-01-28] MEDS ORDERED: POTASSIUM CL SA 10 MEQ TAB PO ONE (08:09)
--- NOTE | 2018-01-28 08:47 | ER ---
Nurse's Notes [facility] Name: Brando Lomeli Age: 47 yrs Sex: Male : 1970 Arrival Date: 01/28/2018 Time: 06:43 Bed 6 Private MD: Diagnosis: Cough;Renal Insuficiency Presentation: 01/28 07:00 Presenting complaint: Patient states: coughing since 3 weeks back; post removal of cc3 right upper lobe of the lung mass on November 07; complaining of fever and chills as verbalized by the patient. 07:00 Transition of care: patient was not received from another setting of care. Onset of cc3 symptoms was January 07, 2018. Risk Assessment: Do you want to hurt yourself or someone else? Patient reports no desire to harm self or others. Initial Sepsis Screen: Does the patient meet any 2 criteria? No. Patient's initial sepsis screen is negative. Does the patient have a suspected source of infection? No. Patient's initial sepsis screen is negative. Care prior to arrival: None. 07:00 Method Of Arrival: Ambulatory cc3 07:00 Acuity: JAMES 3 cc3 Triage Assessment: 07:00 General: Appears in no apparent distress. uncomfortable, Behavior is calm, cooperative, hj appropriate for age. Pain: Complains of pain in R lower lung area. 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 - Social history:: Smoking status: Patient uses tobacco products, 3 cigarettes per day, Patient/guardian denies using alcohol. - Ebola Screening: : Patient negative for fever greater than or equal to 101.5 degrees Fahrenheit, and additional compatible Ebola Virus Disease symptoms Patient denies exposure to infectious person Patient denies travel to an Ebola-affected area in the 21 days before illness onset. Screenin:00 Abuse screen: Denies threats or abuse. Denies injuries from another. Nutritional hj screening: No deficits noted. Tuberculosis screening: No symptoms or risk factors identified. Fall Risk None identified. Assessment: 07:00 General: Appears in no apparent distress. comfortable, Behavior is calm, cooperative, cc3 appropriate for age. Pain: Complains of pain in right lower lung area, midaxillary Pain currently is 8 out of 10 on a pain scale. Quality of pain is described as aching, Pain began 3 weeks ago Is intermittent. Neuro: Level of Consciousness is awake, alert, obeys commands, Oriented to person, place, time, situation, Appropriate for age. Cardiovascular: Denies chest pain. Respiratory: Airway is patent Respiratory effort is even, unlabored, Respiratory pattern is regular, symmetrical. Respiratory: Reports cough that is non-productive, persistent since 3 weeks Breath sounds are clear bilaterally. GI: Abdomen is flat, round non-distended. : No signs and/or symptoms were reported regarding the genitourinary system. EENT: No signs and/or symptoms were reported regarding the EENT system. Derm: noted to have linear surgical scar post right lower lobectomy on November 07. Musculoskeletal: No signs and/or symptoms reported regarding the musculoskeletal system. Vital Signs: 07:00 BP 117 / 86; Pulse 104; Resp 18; Temp 98.1(O); Pulse Ox 98% on R/A; Weight 58.97 kg; hj Height 5 ft. 10 in. (177.80 cm); Pain 5/10; 09:00 BP 122 / 86; Pulse 101; Resp 20; Pulse Ox 97% on R/A; Pain 0/10; cc3 07:00 Body Mass Index 18.65 (58.97 kg, 177.80 cm) ED Course: 06:43 Patient arrived in ED. ds1 06:50 Baljinder Coulter PA is PHCP. jr8 06:50 Tab Peña MD is Attending Physician. jr8 06:53 Jose Cornejo, TOYA is Primary Nurse. bp 07:00 Arm band placed on right wrist. hj 07:00 Patient has correct armband on for positive identification. Placed in gown. Bed in low hj position. Call light in reach. Side rails up X 1. 07:17 Initial lab(s) drawn, by me, sent to lab. Inserted saline lock: 20 gauge in right dh3 antecubital area, using aseptic technique. Blood collected. 07:39 X-ray completed. Patient tolerated procedure well. Patient moved to radiology via jb2 wheelchair. 07:40 Chest Pa And Lat (2 Views) XRAY In Process Unspecified. EDMS 07:41 EKG done, by missile and missile checkout technician. reviewed by Baljinder CHOPRA. at1 07:42 Triage completed. cc3 08:16 Tracy Pierre is Primary Nurse. cc3 09:05 No provider procedures requiring assistance completed. IV discontinued, intact, cc3 bleeding controlled, No redness/swelling at site. Pressure dressing applied. Administered Medications: 07:30 Drug: TORadol 30 mg Route: IVP; Site: right antecubital; cc3 07:50 Follow up: Response: No adverse reaction hj 08:05 Drug: Potassium Chloride 40 mEq Route: PO; cc3 08:13 Follow up: Response: No adverse reaction cc3 08:05 Drug: NS 0.9% 1000 ml Route: IV; Rate: 1000 ml; Site: right antecubital; cc3 09:00 Follow up: IV Status: Completed infusion cc3 Outcome: 08:47 Discharge ordered by . jr8 09:05 Discharged to home via wheelchair, with family. cc3 09:05 Condition: stable 09:05 Discharge instructions given to patient, family, Instructed on discharge instructions, follow up and referral plans. Demonstrated understanding of instructions, follow-up care. 09:16 Patient left the ED. cc3 Signatures: Dispatcher [employer] EDMS Regina Dejan jb2 Lizette Mena ds1 Baljinder Coulter PA PA jr8 Chantelle Dias, peanut blancher EKG Tat1 Yeyo Heller, RN Martina Pascal 3 Jose Cornejo, TOYA RN Tracy Guerrero cc3
--- NOTE | 2018-01-28 08:47 | EDPHYS ---
Physician Documentation [facility] Name: Brando Lomeli Age: 47 yrs Sex: Male : 1970 Arrival Date: 01/28/2018 Time: 06:43 Bed 6 Private MD: ED Physician Tab Peña HPI: 01/28 07:04 This 47 yrs old Male presents to ER via Unassigned with complaints of Side jr8 Pain, Cough. 07:04 The patient or guardian reports cough, that is intermittent, described as mild, with jr8 productive sputum, that is white. Onset: The symptoms/episode began/occurred gradually, 2 day(s) ago. Severity of symptoms: At their worst the symptoms were moderate, in the emergency department the symptoms are unchanged. Modifying factors: The symptoms are alleviated by nothing, the symptoms are aggravated by cough. Associated signs and symptoms: Pertinent positives: chest pain, with cough. The patient has not experienced similar symptoms in the past. The patient has not recently seen a physician. This past November had right upper lobectomy of lung due to cancer. Stated that he has been fine until the past couple of days. Stated that he started with cough and clear sputum. Now has right lower chest pain with cough . 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 - Social history:: Smoking status: Patient uses tobacco products, 3 cigarettes per day, Patient/guardian denies using alcohol. - Ebola Screening: : Patient negative for fever greater than or equal to 101.5 degrees Fahrenheit, and additional compatible Ebola Virus Disease symptoms Patient denies exposure to infectious person Patient denies travel to an Ebola-affected area in the 21 days before illness onset. ROS: 07:07 Eyes: Negative for injury, pain, redness, and discharge, ENT: Negative for injury, jr8 pain, and discharge, Neck: Negative for injury, pain, and swelling, Abdomen/GI: Negative for abdominal pain, nausea, vomiting, diarrhea, and constipation, Back: Negative for injury and pain, MS/Extremity: Negative for injury and deformity, Skin: Negative for injury, rash, and discoloration, Neuro: Negative for headache, weakness, numbness, tingling, and seizure. 07:07 Cardiovascular: Positive for chest pain, Negative for edema, orthopnea, palpitations. 07:07 Respiratory: Positive for cough, with clear sputum, shortness of breath, Negative for dyspnea on exertion, wheezing. Exam: 07:07 Eyes: Pupils equal round and reactive to light, extra-ocular motions intact. Lids and jr8 lashes normal. Conjunctiva and sclera are non-icteric and not injected. Cornea within normal limits. Periorbital areas with no swelling, redness, or edema. ENT: Nares patent. No nasal discharge, no septal abnormalities noted. Tympanic membranes are normal and external auditory canals are clear. Oropharynx with no redness, swelling, or masses, exudates, or evidence of obstruction, uvula midline. Mucous membranes moist. Neck: Trachea midline, no thyromegaly or masses palpated, and no cervical lymphadenopathy. Supple, full range of motion without nuchal rigidity, or vertebral point tenderness. No Meningismus. Cardiovascular: Sinust tachycardic rhythm with a normal S1 and S2. No gallops, murmurs, or rubs. Normal PMI, no JVD. No pulse deficits. Respiratory: Lungs have equal breath sounds bilaterally, clear to auscultation and percussion. No rales, rhonchi or wheezes noted. No increased work of breathing, no retractions or nasal flaring. Abdomen/GI: Soft, non-tender, with normal bowel sounds. No distension or tympany. No guarding or rebound. No evidence of tenderness throughout. Back: No spinal tenderness. No costovertebral tenderness. Full range of motion. Skin: Warm, dry with normal turgor. Normal color with no rashes, no lesions, and no evidence of cellulitis. MS/ Extremity: Pulses equal, no cyanosis. Neurovascular intact. Full, normal range of motion. Neuro: Awake and alert, GCS 15, oriented to person, place, time, and situation. Cranial nerves II-XII grossly intact. Motor strength 5/5 in all extremities. Sensory grossly intact. Cerebellar exam normal. Normal gait. 07:43 ECG was reviewed by the Attending Physician. jr8 Vital Signs: 07:00 BP 117 / 86; Pulse 104; Resp 18; Temp 98.1(O); Pulse Ox 98% on R/A; Weight 58.97 kg; hj Height 5 ft. 10 in. (177.80 cm); Pain 5/10; 09:00 BP 122 / 86; Pulse 101; Resp 20; Pulse Ox 97% on R/A; Pain 0/10; cc3 07:00 Body Mass Index 18.65 (58.97 kg, 177.80 cm) hj MDM: 06:50 Patient medically screened. jr8 08:19 Differential Diagnosis: Bronchitis Upper Respiratory Infection Pneumonia Other jr8 Pulmonary Embolus, Pneumothorax. Data reviewed: vital signs, nurses notes, lab test result(s), EKG, radiologic studies, plain films. Data interpreted: Pulse oximetry: on room air is 98 %. Interpretation: normal. Counseling: I had a detailed discussion with the patient and/or guardian regarding: the historical points, exam findings, and any diagnostic results supporting the discharge/admit diagnosis, lab results, radiology results, the need for outpatient follow up, a family practitioner, to return to the emergency department if symptoms worsen or persist or if there are any questions or concerns that arise at home. Response to treatment: the patient's symptoms have markedly improved after treatment. 01/28 06:59 Order name: CBC with Diff; Complete Time: 08:00 01/28 06:59 Order name: Basic Metabolic Panel; Complete Time: 08:00 01/28 06:59 Order name: Chest Pa And Lat (2 Views) XRAY; Complete Time: 08:58 01/28 07:07 Order name: DD; Complete Time: 08:14 01/28 06:59 Order name: IV; Complete Time: 07:20 01/28 07:09 Order name: EKG - Nurse/Tech; Complete Time: 07:50 01/28 07:09 Order name: EKG; Complete Time: 07:09 EC:43 Rate is 96 beats/min. Rhythm is regular, Normal Sinus Rhythm. Right axis deviation jr8 noted. MN interval is normal at 124 msec. QRS interval is normal at 96 msec. QT interval is normal at 449 msec. Q waves are Present in leads II, III, aVF. T waves are Normal. No ST changes noted. Clinical impression: Abnormal EKG without significant change. Interpreted by me. Reviewed by me. Administered Medications: 07:30 Drug: TORadol 30 mg Route: IVP; Site: right antecubital; cc3 07:50 Follow up: Response: No adverse reaction hj 08:05 Drug: Potassium Chloride 40 mEq Route: PO; cc3 08:13 Follow up: Response: No adverse reaction cc3 08:05 Drug: NS 0.9% 1000 ml Route: IV; Rate: 1000 ml; Site: right antecubital; cc3 09:00 Follow up: IV Status: Completed infusion cc3 Disposition: 12:39 Co-signature as Attending Physician, Tab Peña MD. rn Disposition: 01/28/18 08:47 Discharged to Home. Impression: Cough, Renal Insuficiency . - Condition is Stable. - Discharge Instructions: Acute Kidney Injury, Adult, Cough, Adult, Chronic Kidney Disease, Adult. - Medication Reconciliation Form, Thank You Letter, Antibiotic Education, Prescription Opioid Use form. - Work release form (01/28/18 09:17). iw - Follow up: Private Physician; When: 2 - 3 days; Reason: Recheck today's complaints, Continuance of care, Re-evaluation by your physician. - Problem is new. - Symptoms have improved. Signatures: Dispatcher [employer] EDTab Degroot MD MD rn Roszak, Josh, PA PA jr8 Yeyo Heller RN RN hj Cordel, Charlene cc3 Kalani Ayala RN iw Corrections: (The following items were deleted from the chart) 09:16 08:47 01/28/2018 08:47 Discharged to Home. Impression: Cough; Renal Insuficiency . cc3 Condition is Stable. Forms are Medication Reconciliation Form, Thank You Letter, Antibiotic Education, Prescription Opioid Use. Follow up: Private Physician; When: 2 - 3 days; Reason: Recheck today's complaints, Continuance of care, Re-evaluation by your physician. Problem is new. Symptoms have improved. jr8
--- NOTE | 2018-01-28 08:56 | RAD REPORT ---
EXAM DESCRIPTION: RAD - Chest Pa And Lat (2 Views) - 01/28/2018 7:42 am CLINICAL HISTORY: Productive cough, chest pain COMPARISON: CT chest December 28, two view chest December 28 TECHNIQUE: PA and lateral views of the chest were obtained. FINDINGS: The lungs are fibrotic as a baseline. No large mass, consolidation or failure finding. Pos tsurgical changes from right lobectomy noted. Fullness of the right hilum has not changed. Right ariel diaphragm tenting is noted. CT imaging showed numerous small nodules. These are too small to monitor or evaluate on plain film. Heart size is normal and central vasculature is within normal limits. N o pleural effusion or pneumothorax seen. No acute bony finding noted. No aortic abnormality. IMPRESSION: No acute cardiopulmonary process. The above detailed findings are not clearly different from comparison imaging.
--- NOTE | 2018-01-29 09:34 | EKG ---
Test Date: 2018-01-28 Test Time: 07:31:08 Night Manager: KRISTEN MEASUREMENT RESULTS: Intervals: Rate: 96 OK: 124 QRSD: 96 QT: 356 QTc: 449 [place]: P: 76 OK: 124 QRS: 93 T: 74 INTERPRETIVE STATEMENTS: Normal sinus rhythm Rightward axis Borderline ECG No previous ECG available for comparison Electronically Signed On 01-29-18 09:32:34 CDT by Jose Herron
== END 2018-01-28 09:16 | disposition home or self-care (01) ==
LOC: ER 06:41
DX: R05 Cough (principal); N28.9 Disorder of kidney and ureter, unspecified; F17.210 Nicotine dependence, cigarettes, uncomplicated; Z85.118 Personal history of other malignant neoplasm of bronchus and lung; Z85.819 Personal history of malignant neoplasm of unspecified site of lip, oral cavity, and pharynx
CPT/HCPCS: 36415; 71046; 80048; 85025; 85379; 93005; 96361; 96374; 99284; J7030